=== PATIENT | female | born 1940 | race Caucasian/White ===

== ENCOUNTER → 2017-11-07 16:15 | Outpatient (CLI) | payer BC, SELFPAY ==
[2017-11-07 17:42] LABS: Absolute Lymphocyte Count 1.27 X10^3/ul (0.83-4.51); Basophil# 0.04 X10^3/uL; Basophil% 0.6 % (0-1); Eosinophil# 0.03 X10^3/uL; Eosinophils% 0.4 % (0-5); Hematocrit 43.8 % (37-47); Hemoglobin 14.8 g/dl (12.0-15.0); Lymphocyte # 1.27 X10^3/ul (4.0); Lymphocyte % 18.4 % (19-41); Mean Corp Hgb Conc 33.8 g/gl (32-36); Mean Corpuscular Hgb 31.2 pg (27.0-32.0); Mean Corpuscular Volume 92.2 fL (81-99); Mean Platelet Vol. 11.3 fl (6.2-12.0); Monocyte# 0.58 X10^3/uL; Monocyte% 8.4 % (0-10); Neutrophil # 4.97 X10^3/uL (2.7-7.7); Neutrophil % 71.9 % (47-70); Platelet Count 327 K/mm3 (150-450); RBC Distribution Width SD 39.8 fl (35.1-43.9); Red Blood Count 4.75 M/mm3 (4.2-5.4); White Blood Count 6.9 K/mm3 (4.4-11.0)
[2017-11-07 18:03] LABS: ALB/GLOB Ratio 0.9 RATIO (0.9-2.4); AST(SGOT) 19 U/L (15-37); Alanine Aminotransfer ALT/SGPT 30 U/L (13-56); Albumin, Serum 3.6 g/dL (3.2-5.0); Alkaline Phosphatase 94 U/L (45-117); Anion Gap 9 (5-15); BUN 14 mg/dL (7-18); BUN/Creat Ratio 19.2 RATIO (10-20); Calcium,Total 9.2 mg/dL (8.5-10.1); Chloride 103 mmol/L (98-107); Cholesterol 257 mg/dL (200); Creatinine, Serum 0.73 mg/dL (0.55-1.02); EST Glomerular Filtration Rate 83 mL/min (>60); Est Glom Filt Rate - Afr Amer 100 mL/min (>60); Globulin 3.9 g/dL (2.2-4.2); Glucose 104 mg/dL (74-106); High Density Lipoprotein 58 mg/dL; Potassium 4.1 mmol/L (3.5-5.1); Protein, Total 7.5 g/dL (6.4-8.2); Sodium Level 137 mmol/L (136-145); Thyroid Stim Hormone (TSH) 1.07 uIU/mL (0.358-3.74); Triglycerides 85 mg/dL; Very Low Density Lipoprotein 17 mg/dL (5-40)
[2017-11-07 18:04] LABS: POSITIVE COUNT NO; POSITIVE DIFFERENTIAL NO; POSITIVE MORPHOLOGY NO
== END ==
PROVIDERS: Family Provider Family Medicine; PCP Family Medicine; Visit Provider Family Medicine
DX: I10 Essential (primary) hypertension (principal); E78.5 Hyperlipidemia, unspecified; E04.1 Nontoxic single thyroid nodule
CPT/HCPCS: 36415; 80053; 80061; 84439; 84443; 85025

== ENCOUNTER → 2017-11-08 12:21 | Outpatient (CLI) | payer BC, SELFPAY ==
[2017-11-08 14:31] LABS: Color, Urine Yellow (Yellow); Glucose, Dipstick Normal (Normal); Ketone-Dipstick Negative (Negative); Leukocyte Esterase-Dipstick 500 /ul (Negative); Nitrite-Dipstick Negative (Negative); Occult Blood-Urine 25 /ul (Negative); Protein-Dipstick Negative (Negative); Specific Gravity, Urine 1.015 (1.002-1.030); Urine Bilirubin Dipstick Negative (Negative); Urine Clarity Clear (Clear); Urine Urobilinogen Normal (Normal)
[2017-11-08 14:42] LABS: Bacteria 1+ /hpf (None Seen); Mucous, Urine 1+ /hpf (<or=2+); Red Blood Cells-Urine 0-5 SEEN /hpf (0-5); Squamous Epithelial Cells - UA 0-5 SEEN /hpf (5-10); White Blood Cells 5-10 SEEN /hpf (0-5)
== END ==
PROVIDERS: Family Provider Family Medicine; PCP Family Medicine; Visit Provider Family Medicine
DX: E04.1 Nontoxic single thyroid nodule (principal); E78.5 Hyperlipidemia, unspecified; I10 Essential (primary) hypertension
CPT/HCPCS: 81001

== ENCOUNTER → 2017-11-12 10:05 | Outpatient (CLI) | payer BC, SELFPAY ==
--- NOTE | 2017-11-12 10:10 | US_ITS ---
STUDY: THYROID ULTRASOUND REASON FOR EXAM: Female, 77 years old. Palpable thyroid nodule TECHNIQUE: Ultrasound evaluation of the thyroid was performed with real-time and static chow-scale imaging. COMPARISON: None. FINDINGS: RIGHT LOBE: The right lobe of the thyroid gland measures 4.2 x 1.1 x 1.5 cm. There is a homogeneous echotexture. There are numerous hypoechoic nodules scattered throughout the right thyroid lobe, the largest fibroid measuring 7 x 7 x 3 mm, 8 x 6 x 5 mm, 8 x 7 x 5 mm, 5 x 4 x 5 mm, and 5 x 6 x 4 mm. LEFT LOBE: The left lobe of the thyroid gland measures 4.4 x 1.7 x 2.1 cm. There is a homogeneous echotexture. There is a mixed echogenic slightly hyperechoic nodule of the mid pole measuring 1.9 x 1.9 x 1.1 cm. There is a second mixed echogenic hypoechoic nodule of the lower pole measuring 1.1 x 1.0 x 1.4 cm. ISTHMUS: The isthmus measures 2 mm . The regional lymph nodes are normal. US/Thyroid IMPRESSION: Bilateral thyroid nodules as detailed above. Biopsy of the left thyroid lobe nodules is recommended. Electronically Signed: Cristhian Perez MD at 17:19 EDT , Service support ,
== END ==
PROVIDERS: Family Provider Family Medicine; PCP Family Medicine; Visit Provider Family Medicine
DX: E04.1 Nontoxic single thyroid nodule (principal)
CPT/HCPCS: 76536

== ENCOUNTER → 2017-12-04 07:46 | Outpatient (CLI) | payer BC, SELFPAY ==
--- NOTE | 2017-12-04 14:00 | ASPS_PTH ---
PATIENT: FRANK LI [facility] U[facility][id number] AGE/SX: 84/F ROOM: RE12/04/[address]: Dr. Dilip Pierce MD : 1940 BED: DIS: SPEC #: [id number] RECD: 12/05/17 07:29 STATUS: YG CHRISTIAN #: [id number] ANGELA: 12/04/17 14:[address]: Dilip Pierce DEPT: CYTOLOGY RECD BY: Wild Shipley ENTERED: 12/05/17 08:48 SP TYPE: ASPIRATION OTHR DR: Dr. Fabián Salazar MD Tissues: A - Thyroid gland, NOS B - Thyroid gland, NOS Procedures: Pap Stain (control) Special Stain Group II Cytology Other HEADER OPERATION: Left thyroid FNA x2 PRE-OP DIAGNOSIS: Left thyroid nodule TISSUE SUBMITTED: A - Left thyroid slides inferior (6 slides), B - Left superior thyroid slides (6 slides) DIAGNOSIS CYTOLOGY A. Left thyroid nodule, inferior, FNA (smears): Consistent with benign follicular nodule. The specimen is adequate for evaluation. See comment. B. Left thyroid nodule, superior, FNA (smears): Consistent with benign follicular nodule. The specimen is adequate for evaluation. CLEMENTINA:john 12/06/17 COMMENT A. The smears are cellular. The findings may represent adenomatoid nodule. Correlation with clinical, radiologic findings and appropriate follow up are necessary. CYTOLOGY STUDY Slides are reviewed. CYTOLOGY GROSS A - Received are six smears labeled with the patient's name and designated per the requisition as left inferior thyroid. Submitted for staining. B - Received are six smears labeled with the patient's name and designated per the requisition as left superior thyroid. Submitted for staining. / Shan 12/05/17 TC: CPT: 16441 x2
== END ==
PROVIDERS: Family Provider Family Medicine; PCP Family Medicine; Referring Provider Surgery; Visit Provider Surgery
DX: E04.1 Nontoxic single thyroid nodule (principal)
CPT/HCPCS: 88161; 88313

== ENCOUNTER → 2018-03-06 08:11 | Outpatient (CLI) | payer BC, SELFPAY ==
[2017-11-21 10:24] VITALS: BMI 26.8
[2018-03-06 10:03] LABS: Hematocrit 47.1 % (37-47); Hemoglobin 15.8 g/dl (12.0-15.0); Mean Corp Hgb Conc 33.5 g/gl (32-36); Mean Corpuscular Hgb 30.6 pg (27.0-32.0); Mean Corpuscular Volume 91.1 fL (81-99); Mean Platelet Vol. 11.4 fl (6.2-12.0); Platelet Count 323 K/mm3 (150-450); RBC Distribution Width CV 12.3 % (11.6-14.6); RBC Distribution Width SD 40.6 fl (35.1-43.9); Red Blood Count 5.17 M/mm3 (4.2-5.4); White Blood Count 5.6 K/mm3 (4.4-11.0)
[2018-03-06 10:04] LABS: Absolute Lymphocyte Count 1.29 X10^3/ul (0.83-4.51); Absolute Neutrophil Count 3.6 X10^3/uL (2.0-7.7); Basophil# 0.02 X10^3/uL; Basophil% 0.4 % (0-1); Eosinophil# 0.07 X10^3/uL; Eosinophils% 1.3 % (0-5); Lymphocyte # 1.29 X10^3/ul (4.0); Monocyte# 0.58 X10^3/uL; Monocyte% 10.4 % (0-10); Neutrophil # 3.63 X10^3/uL (2.7-7.7); Neutrophil % 64.7 % (47-70)
[2018-03-06 10:13] LABS: POSITIVE COUNT NO; POSITIVE DIFFERENTIAL NO; POSITIVE MORPHOLOGY NO
[2018-03-06 10:24] LABS: ALB/GLOB Ratio 1.1 RATIO (0.9-2.4); AST(SGOT) 25 U/L (15-37); Alanine Aminotransfer ALT/SGPT 33 U/L (13-56); Albumin, Serum 3.8 g/dL (3.2-5.0); Alkaline Phosphatase 111 U/L (45-117); Anion Gap 10 (5-15); BUN 14 mg/dL (7-18); BUN/Creat Ratio 20.1 RATIO (10-20); Calcium,Total 9.4 mg/dL (8.5-10.1); Chloride 103 mmol/L (98-107); Cholesterol 286 mg/dL (200); EST Glomerular Filtration Rate 87 mL/min (>60); Est Glom Filt Rate - Afr Amer 105 mL/min (>60); Globulin 3.4 g/dL (2.2-4.2); Glucose 100 mg/dL (74-106); High Density Lipoprotein 64 mg/dL; Potassium 4.3 mmol/L (3.5-5.1); Protein, Total 7.2 g/dL (6.4-8.2); Sodium Level 141 mmol/L (136-145); Triglycerides 130 mg/dL; Very Low Density Lipoprotein 26 mg/dL (5-40)
[2018-03-06 15:51] LABS: Bacteria 0 SEEN /hpf (None Seen); Mucous, Urine 0 SEEN /hpf (<or=2+); Red Blood Cells-Urine 0 SEEN /hpf (0-5)
[2018-03-06 16:22] LABS: Color, Urine Straw (Yellow); Glucose, Dipstick Normal (Normal); Ketone-Dipstick Negative (Negative); Leukocyte Esterase-Dipstick 500 /ul (Negative); Nitrite-Dipstick Negative (Negative); Occult Blood-Urine Negative /ul (Negative); Protein-Dipstick Negative (Negative); Urine Bilirubin Dipstick Negative (Negative); Urine Clarity Clear (Clear); Urine Urobilinogen Normal (Normal)
[2018-03-06 16:51] LABS: Squamous Epithelial Cells - UA 0-5 SEEN /hpf (5-10); Transitional Epithelial - Ur 0-5 SEEN /hpf (0-5)
[2018-03-06 16:52] LABS: White Blood Cells 0-5 SEEN /hpf (0-5)
== END ==
PROVIDERS: Family Provider Family Medicine; PCP Family Medicine; Visit Provider Family Medicine
DX: I10 Essential (primary) hypertension (principal); E78.5 Hyperlipidemia, unspecified
CPT/HCPCS: 36415; 80053; 80061; 81001; 85025

== ENCOUNTER → 2018-06-27 08:01 | Outpatient (CLI) | payer BC, SELFPAY ==
[2018-06-27 10:09] LABS: Absolute Lymphocyte Count 1.45 X10^3/ul (0.83-4.51); Absolute Neutrophil Count 2.8 X10^3/uL (2.0-7.7); Basophil# 0.02 X10^3/uL; Basophil% 0.4 % (0-1); Eosinophil# 0.16 X10^3/uL; Eosinophils% 3.2 % (0-5); Hematocrit 44.2 % (37-47); Hemoglobin 15.2 g/dl (12.0-15.0); Lymphocyte # 1.45 X10^3/ul (4.0); Lymphocyte % 28.9 % (19-41); Mean Corp Hgb Conc 34.4 g/gl (32-36); Mean Corpuscular Hgb 31.2 pg (27.0-32.0); Mean Corpuscular Volume 90.8 fL (81-99); Mean Platelet Vol. 11.3 fl (6.2-12.0); Monocyte# 0.63 X10^3/uL; Monocyte% 12.5 % (0-10); Neutrophil # 2.75 X10^3/uL (2.7-7.7); Neutrophil % 54.8 % (47-70); Platelet Count 316 K/mm3 (150-450); RBC Distribution Width CV 12.4 % (11.6-14.6); Red Blood Count 4.87 M/mm3 (4.2-5.4)
[2018-06-27 10:11] LABS: POSITIVE COUNT NO; POSITIVE DIFFERENTIAL NO; POSITIVE MORPHOLOGY NO
[2018-06-27 11:03] LABS: ALB/GLOB Ratio 1.3 RATIO (0.9-2.4); AST(SGOT) 23 U/L (15-37); Alanine Aminotransfer ALT/SGPT 32 U/L (13-56); Albumin, Serum 3.8 g/dL (3.2-5.0); Alkaline Phosphatase 111 U/L (45-117); Anion Gap 8 (5-15); BUN 12 mg/dL (7-18); BUN/Creat Ratio 17.8 RATIO (10-20); Calcium,Total 8.9 mg/dL (8.5-10.1); Chloride 104 mmol/L (98-107); Cholesterol 251 mg/dL (200); Creatinine, Serum 0.67 mg/dL (0.55-1.02); EST Glomerular Filtration Rate 91 mL/min (>60); Est Glom Filt Rate - Afr Amer 110 mL/min (>60); Glucose 87 mg/dL (74-106); High Density Lipoprotein 63 mg/dL; Potassium 4.1 mmol/L (3.5-5.1); Protein, Total 6.8 g/dL (6.4-8.2); Sodium Level 140 mmol/L (136-145); Triglycerides 92 mg/dL; Very Low Density Lipoprotein 18 mg/dL (5-40)
[2018-07-02 23:07] LABS: CPK Total, Creatine Kinase 74 U/L (26-192); Ferritin 71 ng/mL (8-252); Magnesium 2.3 mg/dL (1.6-2.6)
== END ==
PROVIDERS: Family Provider Family Medicine; PCP Family Medicine; Referring Provider Family Medicine; Visit Provider Family Medicine
DX: E78.5 Hyperlipidemia, unspecified (principal); I10 Essential (primary) hypertension
CPT/HCPCS: 36415; 80053; 80061; 82550; 82728; 83735; 85025

== ENCOUNTER → 2018-11-04 09:29 | Outpatient (CLI) | payer BC, SELFPAY ==
[2017-11-21 10:24] VITALS: BMI 26.8
[2018-11-04 12:50] LABS: CPK Total, Creatine Kinase 93 U/L (26-192); Ferritin 86 ng/mL (8-252); Magnesium 2.4 mg/dL (1.6-2.6)
== END ==
PROVIDERS: Family Provider Family Medicine; PCP Family Medicine; Referring Provider Family Medicine; Visit Provider Family Medicine
DX: R25.2 Cramp and spasm (principal)
CPT/HCPCS: 36415; 82550; 82728; 83735

== ENCOUNTER → 2018-12-26 11:16 | Outpatient (CLI) | payer BC, SELFPAY ==
--- NOTE | 2018-12-26 11:23 | US_ITS ---
STUDY: THYROID ULTRASOUND REASON FOR EXAM: Female, 78 years old. Multiple thyroid nodule. TECHNIQUE: Ultrasound evaluation of the thyroid was performed with real-time and static chow-scale imaging. COMPARISON: 11/12/2017. FINDINGS: RIGHT LOBE: The right lobe of the thyroid gland measures 4.4 x 1.2 x 1.6 cm. There is a heterogeneous echotexture. Within the right thyroid lobe there are multiple hypoechoic, solid nodules with the hypoechoic rim and and internal vascularity, largest measuring 0.8 x 0.7 x 0.4 cm and 0.7 x 0.5 x 0.6 cm. There are few partially cystic/solid nodules largest measuring 0.7 x 0.4 cm. The margins are regular. LEFT LOBE: The left lobe of the thyroid gland measures 4.6 x 2.1 x 2.0 cm. There is a heterogeneous echotexture. Within the left thyroid lobe there are 2 nodules, largest measuring 2.5 x 1.9 x 1.6 cm with partial hypoechoic rim, internal flow and partial cystic changes. A second nodule seen measuring 1.4 x 1.0 x 1.5 cm with partial cystic change and solid pattern. There is mild calcification at this level. ISTHMUS: The isthmus measures 2.0 mm. The regional lymph nodes are normal. US/Thyroid IMPRESSION: Bilateral thyroid lobe nodules as described above with morphology favoring benign process and stable in the interval. No new nodules are identified. Clinical correlation recommended. Electronically Signed: Inez Campbell MD at 3:09 EDT , Service support ,
== END ==
PROVIDERS: Family Provider Family Medicine; PCP Family Medicine; Referring Provider Family Medicine; Visit Provider Family Medicine
DX: E04.2 Nontoxic multinodular goiter (principal)
CPT/HCPCS: 76536

== ENCOUNTER → 2020-01-07 14:08 | Outpatient (CLI) | payer BC, SELFPAY ==
--- NOTE | 2020-01-07 14:11 | US_ITS ---
STUDY: THYROID ULTRASOUND REASON FOR EXAM: Female, 79 years old. F/U NODULES TECHNIQUE: Ultrasound evaluation of the thyroid was performed with real-time and static chow-scale imaging. COMPARISON: 12/26/2018 FINDINGS: RIGHT LOBE: The right lobe of the thyroid gland measures 4.5 x 1.2 x 1.5 cm. There is a heterogeneous echotexture. There are multiple solid (and some cystic) nodules of the right thyroid lobe with the largest measuring up to 9 mm. None of the nodules have demonstrated significant morphologic change since the prior study. LEFT LOBE: The left lobe of the thyroid gland measures 4.6 x 2.0 x 1.8 cm. There is a heterogeneous echotexture. There are multiple nodules of the thyroid lobe with the largest solid nodule measuring up to 2.4 cm, not substantially changed. An additional solid nodule measuring 1.4 cm is also overall similar to slightly smaller as compared to the prior study. None of the nodules have demonstrated significant morphologic change since the prior study. ISTHMUS: The isthmus measures 2 mm. The regional lymph nodes are normal. US/Thyroid IMPRESSION: 1. Stable multinodular thyroid gland. No significant interval change. No new nodules. Electronically Signed: Francis Nichole MD (Brooks) at 9:14 EST , Service support ,
== END ==
PROVIDERS: PCP Family Medicine; Referring Provider Family Medicine; Visit Provider Family Medicine
DX: E04.2 Nontoxic multinodular goiter (principal)
CPT/HCPCS: 76536

== ENCOUNTER 2020-05-05 10:16 | Outpatient (RCR) | payer BC, SELFPAY ==
[2017-11-21 10:24] VITALS: BMI 26.8
[2020-05-05] MEDS: COVID-19 VACC, MRNA(PFIZER)/PF 30 MCG/0.3 ML SYRINGE IM (09:04)
[2020-05-26] MEDS: COVID-19 VACC, MRNA(PFIZER)/PF 30 MCG/0.3 ML SYRINGE IM (08:54)
== END 2020-05-05 23:59 ==
LOC: IMMUN 10:16
PROVIDERS: PCP Family Medicine; Visit Provider Family Medicine
DX: Z23 Encounter for immunization (principal)
CPT/HCPCS: 0001A; 0002A

== ENCOUNTER → 2020-06-14 08:01 | Outpatient (CLI) | payer BC, SELFPAY ==
[2020-06-14 10:06] LABS: Absolute Lymphocyte Count 1.18 X10^3/uL (0.83-4.51); Basophil# 0.03 X10^3/uL; Basophil% 0.6 % (0-1); Eosinophil# 0.07 X10^3/uL; Eosinophils% 1.4 % (0-5); Lymphocyte # 1.18 X10^3/ul (4.0); Lymphocyte % 24.3 % (19-41); Mean Corp Hgb Conc 31.9 g/dL (32-36); Mean Corpuscular Hgb 29.9 pg (27.0-32.0); Mean Corpuscular Volume 93.8 fL (81-99); Mean Platelet Vol. 11.8 fl (6.2-12.0); Monocyte# 0.52 X10^3/uL; Monocyte% 10.7 % (0-10); NRBC Flagged by Analyzer 0 % (0-5); Neutrophil # 3.02 X10^3/uL (2.7-7.7); Neutrophil % 62.4 % (47-70); Platelet Count 327 K/mm3 (150-450); RBC Distribution Width CV 11.9 % (11.6-14.6); Red Blood Count 5.01 M/mm3 (4.2-5.4); White Blood Count 4.9 K/mm3 (4.4-11.0)
[2020-06-14 10:27] LABS: AST(SGOT) 25 U/L (15-37); Alanine Aminotransfer ALT/SGPT 34 U/L (13-56); Albumin, Serum 3.6 g/dL (3.2-5.0); Alkaline Phosphatase 109 U/L (45-117); Anion Gap 5 (5-15); BUN 14 mg/dL (7-18); BUN/Creat Ratio 20.8 RATIO (10-20); Calcium,Total 9.4 mg/dL (8.5-10.1); Chloride 102 mmol/L (98-107); Cholesterol 237 mg/dL (200); Creatinine, Serum 0.67 mg/dL (0.55-1.02); EST Glomerular Filtration Rate 90 mL/min (>60); Est Glom Filt Rate - Afr Amer 109 mL/min (>60); Globulin 3.6 g/dL (2.2-4.2); Glucose 103 mg/dL (74-106); High Density Lipoprotein 64 mg/dL; Potassium 3.9 mmol/L (3.5-5.1); Protein, Total 7.2 g/dL (6.4-8.2); Sodium Level 138 mmol/L (136-145); Triglycerides 126 mg/dL; Very Low Density Lipoprotein 25 mg/dL (5-40)
[2020-06-14 10:31] LABS: Vitamin D,25 Hydroxy 29.9 ng/mL
[2020-06-15 10:30] LABS: Hemoglobin A1c 5.1 % (3.8-5.6)
== END ==
PROVIDERS: PCP Family Medicine; Referring Provider Family Medicine; Visit Provider Family Medicine
DX: I10 Essential (primary) hypertension (principal); E55.9 Vitamin D deficiency, unspecified; E78.5 Hyperlipidemia, unspecified; R73.9 Hyperglycemia, unspecified
CPT/HCPCS: 36415; 80053; 80061; 82306; 83036; 85025

== ENCOUNTER → 2021-01-11 08:09 | Outpatient (CLI) | payer BC, SELFPAY ==
[2021-01-11 10:20] LABS: Absolute Lymphocyte Count 1.18 X10^3/uL (0.83-4.51); Absolute Neutrophil Count 4.6 X10^3/uL (2.0-7.7); Basophil# 0.04 X10^3/uL; Basophil% 0.6 % (0-1); Eosinophils% 1.5 % (0-5); Hematocrit 44.7 % (37-47); Hemoglobin 15.1 g/dL (12.0-15.0); Lymphocyte # 1.18 X10^3/ul (0.83-4.51); Lymphocyte % 18.2 % (19-41); Mean Corp Hgb Conc 33.8 g/dL (32-36); Mean Corpuscular Hgb 31.1 pg (27.0-32.0); Mean Corpuscular Volume 92.2 fL (81-99); Mean Platelet Vol. 11.8 fl (6.2-12.0); Monocyte% 9.2 % (0-10); NRBC Flagged by Analyzer 0 % (0-5); Neutrophil # 4.55 X10^3/uL (2.7-7.7); Neutrophil % 70.2 % (47-70); Platelet Count 301 K/mm3 (150-450); RBC Distribution Width CV 11.9 % (11.6-14.6); RBC Distribution Width SD 40.5 fl (35.1-43.9); Red Blood Count 4.85 M/mm3 (4.2-5.4); White Blood Count 6.5 K/mm3 (4.4-11.0)
[2021-01-11 11:06] LABS: Vitamin D,25 Hydroxy 40.2 ng/mL
[2021-01-11 11:14] LABS: Hemoglobin A1c 5.3 % (3.8-5.6)
[2021-01-11 11:45] LABS: ALB/GLOB Ratio 0.9 RATIO (0.9-2.4); AST(SGOT) 27 U/L (15-37); Alanine Aminotransfer ALT/SGPT 32 U/L (13-56); Albumin, Serum 3.4 g/dL (3.2-5.0); Alkaline Phosphatase 74 U/L (45-117); Anion Gap 8 (5-15); BUN 15 mg/dL (7-18); BUN/Creat Ratio 20.3 RATIO (10-20); Chloride 105 mmol/L (98-107); Cholesterol 220 mg/dL (200); Creatinine, Serum 0.74 mg/dL (0.55-1.02); EST Glomerular Filtration Rate 81 mL/min (>60); Est Glom Filt Rate - Afr Amer 98 mL/min (>60); Globulin 3.7 g/dL (2.2-4.2); Glucose 94 mg/dL (74-106); High Density Lipoprotein 56 mg/dL; Potassium 3.7 mmol/L (3.5-5.1); Protein, Total 7.1 g/dL (6.4-8.2); Sodium Level 138 mmol/L (136-145); Thyroid Stim Hormone (TSH) 1.76 uIU/mL (0.358-3.74); Triglycerides 144 mg/dL; Very Low Density Lipoprotein 29 mg/dL (5-40)
== END ==
PROVIDERS: PCP Family Medicine; Referring Provider Family Medicine; Visit Provider Family Medicine
DX: I10 Essential (primary) hypertension (principal); E78.5 Hyperlipidemia, unspecified; R73.9 Hyperglycemia, unspecified; E55.9 Vitamin D deficiency, unspecified
CPT/HCPCS: 36415; 80053; 80061; 82306; 83036; 84443; 85025

== ENCOUNTER → 2021-08-02 | Outpatient (CLI) | payer BC, SELFPAY ==
[2021-08-02 10:03] LABS: Absolute Lymphocyte Count 1.38 X10^3/uL (0.83-4.51); Absolute Neutrophil Count 3.9 X10^3/uL (2.0-7.7); Basophil# 0.05 X10^3/uL; Basophil% 0.8 % (0-1); Eosinophil# 0.13 X10^3/uL; Eosinophils% 2.1 % (0-5); Hematocrit 45.5 % (37-47); Hemoglobin 15.3 g/dL (12.0-15.0); Lymphocyte # 1.38 X10^3/ul (0.83-4.51); Lymphocyte % 22.1 % (19-41); Mean Corp Hgb Conc 33.6 g/dL (32-36); Mean Corpuscular Hgb 30.8 pg (27.0-32.0); Mean Corpuscular Volume 91.7 fL (81-99); Mean Platelet Vol. 11.8 fl (6.2-12.0); Monocyte# 0.73 X10^3/uL; Monocyte% 11.7 % (0-10); NRBC Flagged by Analyzer 0 % (0-5); Neutrophil # 3.93 X10^3/uL (2.7-7.7); Neutrophil % 62.8 % (47-70); Platelet Count 298 K/mm3 (150-450); RBC Distribution Width CV 11.9 % (11.6-14.6); RBC Distribution Width SD 39.8 fl (35.1-43.9); Red Blood Count 4.96 M/mm3 (4.2-5.4); White Blood Count 6.3 K/mm3 (4.4-11.0)
[2021-08-02 10:20] LABS: Vitamin D,25 Hydroxy 39.4 ng/mL
[2021-08-02 10:38] LABS: AST(SGOT) 28 U/L (15-37); Alanine Aminotransfer ALT/SGPT 32 U/L (13-56); Albumin, Serum 3.5 g/dL (3.2-5.0); Alkaline Phosphatase 58 U/L (45-117); Anion Gap 7 (5-15); BUN 17 mg/dL (7-18); BUN/Creat Ratio 24.6 RATIO (10-20); Calcium,Total 9.1 mg/dL (8.5-10.1); Chloride 100 mmol/L (98-107); Cholesterol 249 mg/dL (200); Creatinine, Serum 0.69 mg/dL (0.55-1.02); EST Glomerular Filtration Rate 87 mL/min (>60); Est Glom Filt Rate - Afr Amer 105 mL/min (>60); Globulin 3.5 g/dL (2.2-4.2); Glucose 98 mg/dL (74-106); High Density Lipoprotein 46 mg/dL; Potassium 3.3 mmol/L (3.5-5.1); Sodium Level 137 mmol/L (136-145); Triglycerides 104 mg/dL; Very Low Density Lipoprotein 21 mg/dL (5-40)
== END | disposition home or self-care (01) ==
PROVIDERS: PCP Family Medicine; Visit Provider Family Medicine
DX: I10 Essential (primary) hypertension (principal); E55.9 Vitamin D deficiency, unspecified
CPT/HCPCS: 36415; 80053; 80061; 82306; 85025

== ENCOUNTER → 2021-08-08 | Outpatient (CLI) | payer BC, SELFPAY ==
--- NOTE | 2021-08-08 14:18 | US_ITS ---
STUDY: THYROID ULTRASOUND REASON FOR EXAM: Female, 81 years old. MULTIPLE THYROID NODULES TECHNIQUE: Ultrasound evaluation of the thyroid was performed with real-time and static chow-scale imaging. COMPARISON: Comparison is made with prior study dated 01/07/2020. FINDINGS: RIGHT LOBE: The right lobe of the thyroid gland measures 4.6 cm x 1.4 cm x 1.3 cm. There is a heterogeneous echotexture. Multiple solid and cystic nodules are seen. The largest measures 9 mm x 7 mm x 4 mm. This is in the midpole. There has been no significant change. LEFT LOBE: The left lobe of the thyroid gland measures 4.7 cm x 2.2 cm x 2 cm. There is a homogeneous echotexture. Multiple small solid and cystic nodules are seen. The largest solid/cystic nodule measures 1.2 cm x 0.9 cm x 0.9 cm. This is in the upper pole. This has decreased slightly in size as compared to prior study. ISTHMUS: The isthmus measures 2.5 mm. The regional lymph nodes are normal. US/Thyroid IMPRESSION: Bilateral solid and cystic nodules in both lobes as described. The largest is in the left lobe measuring 1.2 cm x 0.9 cm x 0.9 cm. This has decreased in size as compared to prior study. Electronically Signed: Peewee Rendon MD at 15:56 EDT ,
== END | disposition home or self-care (01) ==
LOC: US 14:15
PROVIDERS: PCP Family Medicine; Referring Provider Family Medicine; Visit Provider Family Medicine
DX: E04.2 Nontoxic multinodular goiter (principal)
CPT/HCPCS: 76536

== ENCOUNTER → 2022-05-08 | Outpatient (CLI) | payer BC, SELFPAY ==
--- NOTE | 2022-05-08 16:00 | BD_ITS ---
STUDY: DUAL ENERGY X-RAY ABSORPTIOMETRY / DXA REASON FOR EXAM: Female, 81 years old. [id number] TECHNIQUE: Bone Mineral Density (BMD) measurements of lumbar spine and bilateral hips were obtained. COMPARISON: None. FINDINGS: Lumbar Spine (L1-L4): g/cm2 (1.243) / T-score (1.5) / Z-score (4.3) Findings are suggestive of normal bone density with a low fracture risk. Left Femur Total: g/cm2 (0.830) / T-score (-0.9) / Z-score (1.1) Left Femoral Neck: g/cm2 (0.595) / T-score (-2.3) / Z-score (0.0) Right Femur Total: g/cm2 (0.757) / T-score (-1.5) / Z-score (0.5) Right Femoral Neck: g/cm2 (0.651) / T-score (-1.8) / Z-score (0.5) BD/Dexa Bone Density Study IMPRESSION: The patient is considered osteopenic as outlined below according to World Foster Organization (WHO) criteria with a high fracture risk. Reference Information: The T-score is the number of standard deviations above or below the standard which is normal for young adults at their peak bone mineral density. The World Health Organization (WHO) interprets the T-scores as follows: Above -1 Normal bone density Between -1 and -2.5 Osteopenia Equal to / or below -2.5 Osteoporosis As a practical clinical guideline, osteopenia may be graded as follows: Mild -1 through -1.5 Moderate -1.6 through -2.0 Severe -2.1 through -2.4 The Z-score is the number of standard deviations above or below age-matched controls. A Z-score of less than -1.5 would be considered abnormal. References: 1. NIH Osteoporosis and Related Bone Diseases www osteo.org 2. International Society for Clinical Densitometry www iscd.org 3. National Osteoporosis Foundation www nof.org Electronically Signed: Peewee Rendon MD at 17:01 EST ,
== END | disposition home or self-care (01) ==
PROVIDERS: PCP Family Medicine; Referring Provider Family Medicine; Visit Provider Family Medicine
DX: Z78.0 Asymptomatic menopausal state (principal)
CPT/HCPCS: 77080

== ENCOUNTER → 2022-05-31 | Outpatient (CLI) | payer BC, SELFPAY ==
[2022-05-31 18:48] LABS: AST(SGOT) 26 U/L (15-37); Alanine Aminotransfer ALT/SGPT 31 U/L (13-56); Albumin, Serum 3.7 g/dL (3.2-5.0); Alkaline Phosphatase 70 U/L (45-117); Anion Gap 8 (5-15); BUN 27 mg/dL (7-18); BUN/Creat Ratio 36.2 RATIO (10-20); Calcium,Total 9.5 mg/dL (8.5-10.1); Chloride 99 mmol/L (98-107); Creatinine, Serum 0.75 mg/dL (0.55-1.02); EST Glomerular Filtration Rate 80 mL/min (>60); Est Glom Filt Rate - Afr Amer 96 mL/min (>60); Globulin 3.6 g/dL (2.2-4.2); Glucose 100 mg/dL (74-106); Protein, Total 7.3 g/dL (6.4-8.2); Sodium Level 136 mmol/L (136-145)
== END | disposition home or self-care (01) ==
LOC: MTLAB 14:53
PROVIDERS: PCP Family Medicine; Referring Provider Family Medicine; Visit Provider Family Medicine
DX: M85.80 Other specified disorders of bone density and structure, unspecified site (principal)
CPT/HCPCS: 36415; 80053

== ENCOUNTER → 2022-06-06 | Outpatient (CLI) | payer BC, SELFPAY ==
[2022-06-06 18:04] LABS: Potassium 4.4 mmol/L (3.5-5.1)
== END | disposition home or self-care (01) ==
LOC: MFPLAB 14:25
PROVIDERS: PCP Family Medicine; Referring Provider Family Medicine; Visit Provider Family Medicine
DX: E87.6 Hypokalemia (principal)
CPT/HCPCS: 36415; 84132

== ENCOUNTER → 2022-06-12 | Outpatient (CLI) | payer BC, SELFPAY ==
[2022-06-12 18:36] LABS: Potassium 3.3 mmol/L (3.5-5.1)
== END | disposition home or self-care (01) ==
LOC: MFPLAB 14:46
PROVIDERS: PCP Family Medicine; Referring Provider Family Medicine; Visit Provider Family Medicine
DX: E87.6 Hypokalemia (principal)
CPT/HCPCS: 36415; 84132

== ENCOUNTER → 2022-06-20 | Outpatient (CLI) | payer BC, SELFPAY ==
[2022-06-20 16:14] LABS: Potassium 3.9 mmol/L (3.5-5.1)
== END | disposition home or self-care (01) ==
LOC: MFPLAB 14:31
PROVIDERS: PCP Family Medicine; Referring Provider Family Medicine; Visit Provider Family Medicine
DX: E87.6 Hypokalemia (principal)
CPT/HCPCS: 36415; 84132

== ENCOUNTER 2022-08-18 04:11 | Emergency (ER) | payer BC, SELFPAY ==
[2022-08-18 04:12] VITALS: BP 163/60; PULSE 78; RESP 18; TEMP 35.9; O2SAT 97; BMI 26.4
--- NOTE | 2022-08-18 04:35 | EDS_ITS ---
HPI HPI - GI History of Present Illness Chief Complaint: Nausea/Vomiting Narrative Narrative: 82-year-old female presenting with nausea, vomiting. She states that started about 7 PM yesterday. She is been vomiting once an hour. Denies bloody emesis or black emesis. No fevers, chills, body aches. Patient states that she ate some fish at a restaurant earlier with her daughter. She has been trying to get a hold of her daughter to see if she has been sick but she not been able to get a hold of her. Patient also concerned that her potassium might be low because she is always got low potassium. She states that she is on hydrochlorothiazide and this makes her potassium low. She states that her primary care physician told her to eat 2 bananas and eat a smoothie every day, however her potassium is always low. She does not have any chest pain or shortness of breath. She does not have any abdominal pain. Denies urinary symptoms. She has not had any diarrhea. PFSH [facility] Medical History Essential hypertension Multiple thyroid nodules Home Medications amlodipine 5 mg tablet (Norvasc) 10 mg PO DAILY 11/21/17 [History Last Taken Unknown] hydrochlorothiazide 25 mg tablet 25 mg PO DAILY 08/18/22 [History Last Taken Unknown] ondansetron 4 mg disintegrating tablet 4 mg PO Q8H PRN PRN Nausea #14 tabs 08/18/22 [Rx Last Taken Unknown] Allergy/AdvReac Type Severity Reaction Status Date / Time atorvastatin [From Lipitor] Allergy Other Verified 08/18/22 04:16 Family History Mother Heart disease CHF Hypertension Father Heart disease Hypertension Myocardial infarction Daughter Breast cancer Lyme disease Surgical History Hx of bilateral cataract extraction Hx of cholecystectomy Hx of wisdom tooth extraction Status post biopsy of thyroid gland (~12/2017) Social History Smoking Status: Never smoker second hand exposure: No alcohol intake: never substance use type: does not use caffeine: Yes what type of physical activity do you participate in: none frequency: does not exercise seatbelt use: always ROS ROS ED Constitutional Constitutional ED: Denies chills, fever(s) or sweats Eyes Eyes: Denies blurry vision or change in vision ENT ENT ED: Denies ear pain or sore throat Cardiovascular Cardiovascular: Denies chest pain, palpitations or racing heartbeat Respiratory/Chest Respiratory/Chest: Denies cough, dyspnea or sputum Gastrointestinal Gastrointestinal: Reports nausea and vomiting; Denies abdominal pain, constipation or diarrhea Genitourinary Genitourinary ED: Denies dysuria, hematuria or urinary frequency Musculoskeletal Musculoskeletal: Denies arthralgias, myalgias or neck pain Integumentary Denies abscess, Abrasions or rash Neurologic Neurologic: Denies headache(s), paresthesias or weakness Psychiatric Psychiatric: Denies anxiety, depression, suicidal ideation or suicidal thoughts Endocrine Endocrinology: Denies polydipsia or polyuria EXAM Physical Exam Const Vital Signs: 08/18/22 04:12 Temperature 96.6 F L Temperature Source Temporal Pulse Rate 78 Respiratory Rate 18 Blood Pressure 163/60 H Blood Pressure Mean 94 Pulse Ox 97 Oxygen Delivery Method Room Air Positive well nourished General Appearance ED: NAD; Negative for pallor HEENT Reports moist mucous membranes normocephalic and atraumatic Eyes PERRL and EOMs intact bilaterally Resp normal respiratory effort and clear to auscultation bilaterally Auscultation: Negative for rales, rhonchi or wheezes Cardio regular rate and regular rhythm GI non-tender and non-distended Neuro CN's II-XII intact bilaterally, moves all extremities and no sensory deficits noted Sensorium / Orientation: alert Motor Exam: strength 5/5 throughout Psych mental status grossly normal and thought process normal Skin no wounds General Skin Exam: Negative for jaundice or pallor MDM MDM MDM Narrative Medical decision making narrative: Patient presenting with nausea/vomiting. She thinks she ate some bad fish at a restaurant yesterday. Vital signs are stable and she is afebrile. Abdominal exam is benign. IV line was established. She is given a liter normal saline and 4 mg of Zofran. We will obtain a CBC to assess white blood cell count, hemoglobin and platelets, differential. CMP to assess liver function, renal function, electrolytes. Urinalysis to assess for UTI. CBC shows a mildly cytosis of 12.4. This could be reactive. Patient has been vomiting. Renal function is normal however her BUN/creatinine ratio is elevated. Given second liter fluid patient has not been able to make urine. She is currently trying again now. She presented to incoming ED provider for monitoring. Impression: 1. Nausea/vomiting Lab Data Labs: Laboratory Results - last 24 hr 08/18/22 08/18/22 04:48 04:48 WBC 12.4 H RBC 5.02 Hgb 15.5 H Hct 45.8 MCV 91.2 MCH 30.9 MCHC 33.8 RDW Std Deviation 39.9 RDW Coeff of Sameer 12.0 Plt Count 273 MPV 10.8 Immature Gran % (Auto) 0.300 Neut % (Auto) 89.9 H Lymph % (Auto) 1.5 L [place] % (Auto) 7.3 Eos % (Auto) 0.5 Baso % (Auto) 0.5 Absolute Neuts (auto) 11.2 H Absolute Lymphs (auto) 0.18 L Nucleated RBC % 0 Differential Comment SCANNED Toxic Granulation 2+ Platelet Estimate ADEQUATE Plt Morphology Comment LARGE Sodium 141 Potassium 3.3 L Chloride 106 Carbon Dioxide 27.0 Anion Gap 8 BUN 23 H Creatinine 0.75 Estim Creat Clear Calc 33.86 Est GFR (MDRD) Af Amer 96 Est GFR (MDRD) Non-Af 79 BUN/Creatinine Ratio 30.7 H Glucose 174 H Calcium 8.6 Total Bilirubin 0.70 AST 22 ALT 33 Alkaline Phosphatase 61 Total Protein 6.7 Albumin 3.4 Globulin 3.3 Albumin/Globulin Ratio 1.0 Discharge Plan Triage Chief Complaint: Nausea/Vomiting ED Provider: Mahad Glez Dx/Rx/DC Orders Instructions: ED FOOD POIS or G-ENTERITIS [id number] Prescriptions: New ondansetron 4 mg tablet,disintegrating 4 mg PO Q8H PRN PRN (Reason: Nausea) Qty: 14 0RF No Action amlodipine [Norvasc] 5 mg tablet 10 mg PO DAILY hydrochlorothiazide 25 mg tablet 25 mg PO DAILY Label Comments: take 1 tablet by mouth once daily Primary Care Provider: Fabián Salazar Referrals: Fabián Salazar MD [Primary Care Provider] - Disposition Disposition: Home, Self Care
[2022-08-18] MEDS: 0.9% Normal Saline 1,000 ML 999 ML IV ×2 (04:45→06:25)
[2022-08-18] MEDS: Ondansetron 4 MG/2 ML Vial IV (04:45)
[2022-08-18 04:52] LABS: Absolute Lymphocyte Count 0.18 X10^3/uL (0.83-4.51); Absolute Neutrophil Count 11.2 X10^3/uL (2.0-7.7); Basophil# 0.06 X10^3/uL; Basophil% 0.5 % (0-1); Eosinophil# 0.06 X10^3/uL; Eosinophils% 0.5 % (0-5); Hematocrit 45.8 % (37-47); Hemoglobin 15.5 g/dL (12.0-15.0); Lymphocyte # 0.18 X10^3/ul (0.83-4.51); Lymphocyte % 1.5 % (19-41); Mean Corp Hgb Conc 33.8 g/dL (32-36); Mean Corpuscular Hgb 30.9 pg (27.0-32.0); Mean Corpuscular Volume 91.2 fL (81-99); Mean Platelet Vol. 10.8 fl (6.2-12.0); Monocyte% 7.3 % (0-10); NRBC Flagged by Analyzer 0 % (0-5); Neutrophil # 11.17 X10^3/uL (2.7-7.7); Neutrophil % 89.9 % (47-70); POSITIVE DIFFERENTIAL YES; Platelet Count 273 K/mm3 (150-450); RBC Distribution Width SD 39.9 fl (35.1-43.9); Red Blood Count 5.02 M/mm3 (4.2-5.4); White Blood Count 12.4 K/mm3 (4.4-11.0)
[2022-08-18 05:07] LABS: AST(SGOT) 22 U/L (15-37); Alanine Aminotransfer ALT/SGPT 33 U/L (13-56); Albumin, Serum 3.4 g/dL (3.2-5.0); Alkaline Phosphatase 61 U/L (45-117); Anion Gap 8 (5-15); BUN 23 mg/dL (7-18); BUN/Creat Ratio 30.7 RATIO (10-20); Calcium,Total 8.6 mg/dL (8.5-10.1); Chloride 106 mmol/L (98-107); Creatinine, Serum 0.75 mg/dL (0.55-1.02); EST Glomerular Filtration Rate 79 mL/min (>60); Est Glom Filt Rate - Afr Amer 96 mL/min (>60); Estimated Creatinine Clearance 33.86 ml/min; Globulin 3.3 g/dL (2.2-4.2); Glucose 174 mg/dL (74-106); Potassium 3.3 mmol/L (3.5-5.1); Protein, Total 6.7 g/dL (6.4-8.2); Sodium Level 141 mmol/L (136-145)
[2022-08-18 05:21] LABS: Differential Indicated SCAN CRITERIA MET
[2022-08-18 05:22] LABS: Differential Comment SCANNED; Platelet Estimate ADEQUATE (ADEQ); Platelet Morphology LARGE; Toxic Granulation 2+
[2022-08-18] MEDS: Potassium Chloride Oral Tablet 20 MEQ 40 MEQ PO (06:14)
[2022-08-18 07:42] LABS: Mucous, Urine 0 SEEN /hpf (<or=2+); Red Blood Cells-Urine 0 SEEN /hpf (0-5); Squamous Epithelial Cells - UA 0 SEEN /hpf (5-10)
[2022-08-18 07:45] LABS: Color, Urine Yellow (Yellow); Glucose, Dipstick Normal (Normal); Ketone-Dipstick Negative (Negative); Leukocyte Esterase-Dipstick 100 /ul (Negative); Nitrite-Dipstick Negative (Negative); Occult Blood-Urine Negative /ul (Negative); Protein-Dipstick 15 mg/dl (Negative); Urine Bilirubin Dipstick Negative (Negative); Urine Clarity Sl. Cloudy (Clear); Urine Urobilinogen Normal (Normal)
[2022-08-18 08:02] LABS: Bacteria 2+ /hpf (None Seen); White Blood Cells 0-5 SEEN /hpf (0-5)
== END 2022-08-18 08:05 | disposition home or self-care (01) ==
PROVIDERS: Emergency Provider Student in an Organized Health Care Education/Training Program; PCP Family Medicine; Visit Provider Student in an Organized Health Care Education/Training Program
DX: R11.2 Nausea with vomiting, unspecified (principal); I10 Essential (primary) hypertension; Z79.899 Other long term (current) drug therapy
CPT/HCPCS: 80053; 81001; 85025; 96374; 99283; J7030; A4216; J2405

== ENCOUNTER → 2022-10-23 | Outpatient (CLI) | payer BC, SELFPAY ==
[2022-10-23 18:31] LABS: Absolute Lymphocyte Count 1.55 X10^3/uL (0.83-4.51); Absolute Neutrophil Count 4.4 X10^3/uL (2.0-7.7); Basophil# 0.04 X10^3/uL; Basophil% 0.6 % (0-1); Eosinophils% 1.5 % (0-5); Hematocrit 44.9 % (37-47); Hemoglobin 14.8 g/dL (12.0-15.0); Lymphocyte # 1.55 X10^3/ul (0.83-4.51); Lymphocyte % 22.5 % (19-41); Mean Corpuscular Hgb 30.6 pg (27.0-32.0); Mean Corpuscular Volume 92.8 fL (81-99); Monocyte# 0.77 X10^3/uL; Monocyte% 11.2 % (0-10); NRBC Flagged by Analyzer 0 % (0-5); Neutrophil % 63.9 % (47-70); Platelet Count 327 K/mm3 (150-450); RBC Distribution Width CV 12.2 % (11.6-14.6); RBC Distribution Width SD 41.7 fl (35.1-43.9); Red Blood Count 4.84 M/mm3 (4.2-5.4); White Blood Count 6.9 K/mm3 (4.4-11.0)
[2022-10-23 19:14] LABS: ALB/GLOB Ratio 1.1 RATIO (0.9-2.4); AST(SGOT) 29 U/L (15-37); Alanine Aminotransfer ALT/SGPT 36 U/L (13-56); Albumin, Serum 3.8 g/dL (3.2-5.0); Alkaline Phosphatase 71 U/L (45-117); Anion Gap 7 (5-15); BUN 20 mg/dL (7-18); BUN/Creat Ratio 24.2 RATIO (10-20); Calcium,Total 9.5 mg/dL (8.5-10.1); Chloride 100 mmol/L (98-107); Cholesterol 226 mg/dL (200); Creatinine, Serum 0.83 mg/dL (0.55-1.02); EST Glomerular Filtration Rate 70 mL/min (>60); Est Glom Filt Rate - Afr Amer 85 mL/min (>60); Globulin 3.6 g/dL (2.2-4.2); Glucose 93 mg/dL (74-106); High Density Lipoprotein 49 mg/dL; Potassium 3.8 mmol/L (3.5-5.1); Protein, Total 7.4 g/dL (6.4-8.2); Sodium Level 137 mmol/L (136-145); Thyroid Stim Hormone (TSH) 1.43 uIU/mL (0.358-3.74); Triglycerides 148 mg/dL; Very Low Density Lipoprotein 30 mg/dL (5-40)
== END | disposition home or self-care (01) ==
LOC: MFPLAB 16:41
PROVIDERS: PCP Family Medicine; Visit Provider Family Medicine
DX: I10 Essential (primary) hypertension (principal); E55.9 Vitamin D deficiency, unspecified
CPT/HCPCS: 36415; 80053; 80061; 82306; 84443; 85025

== ENCOUNTER 2023-09-21 23:45 | Emergency (ER) | payer BC, SELFPAY ==
[2023-09-21 23:46] VITALS: BP 151/66; PULSE 95; RESP 20; TEMP 35.8; O2SAT 97; BMI 24.8
--- NOTE | 2023-09-22 00:13 | ED.VIS.GI ---
HPI HPI - GI History of Present Illness Chief Complaint: Nausea/Vomiting Informant: patient Abdominal Pain/Flank Pain Onset: Today Context: Gradual Onset Timing: Continuous Quality: Cramping Location: Diffuse Worsened by: Nothing Relieved by: Nothing Nausea/Vomiting/Emesis GI Symptom: Positive for Nausea and Vomiting Onset: Today Quality: Positive for Nonbilious; Negative for Blood streaks, Coffee ground or Hematemesis Diarrhea/Melena/Hematochezia GI Symptom: Positive for Diarrhea; Negative for Melena or Hematochezia Onset: Today Stool Quality: Positive for Watery Associated Symptoms Associated Symptoms: Negative for Dysuria, Frequency or Hematuria Narrative Narrative: Patient presents with abdominal pain, nausea, vomiting, and diarrhea that began earlier today. Patient states she is unable to keep anything down. Patient states she has had similar episodes in the past from food poisoning and became dehydrated. Patient is concerned that she is becoming dehydrated again today. Patient admits to diffuse abdominal cramping. Patient states nothing makes her pain better nothing makes it worse. Patient states she feels dizzy at times. Patient denies any fevers or chills. PFSH PFS Medical History Multiple thyroid nodules Essential hypertension Home Medications ?Medication ?Instructions ?Recorded ?Last Taken ?Type amlodipine 5 mg tablet (Norvasc) 10 mg PO DAILY 11/21/17 Unknown History hydrochlorothiazide 25 mg tablet 25 mg PO DAILY 08/18/22 Unknown History ondansetron 4 mg disintegrating 4 mg PO Q8H PRN PRN Nausea #14 tabs 08/18/22 Unknown Rx tablet Allergy/AdvReac Type Severity Reaction Status Date / Time atorvastatin (From Lipitor) Allergy Other Verified 09/21/23 23:48 Family History Mother Heart disease CHF Hypertension Father Heart disease Hypertension Myocardial infarction Daughter Breast cancer Lyme disease Surgical History Status post biopsy of thyroid gland (~12/2017) Hx of wisdom tooth extraction Hx of bilateral cataract extraction Hx of cholecystectomy Social History Smoking Status: Never smoker second hand exposure: No alcohol intake: never substance use type: does not use caffeine: Yes what type of physical activity do you participate in: none frequency: does not exercise seatbelt use: always ROS ROS ED Constitutional Constitutional ED: Denies chills or fever(s) Eyes Eyes: Denies blurry vision or change in vision ENT ENT ED: Denies rhinorrhea or sore throat Cardiovascular Cardiovascular: Denies chest pain or palpitations Respiratory/Chest Respiratory/Chest: Denies cough or dyspnea Gastrointestinal Gastrointestinal: Reports abdominal pain, diarrhea, nausea and vomiting; Denies melena Genitourinary Genitourinary ED: Denies dysuria or hematuria Musculoskeletal Musculoskeletal: Denies back pain or neck pain Integumentary Reports rash; Denies abscess Neurologic Neurologic: Denies headache(s) or weakness Allergic/Immunologic Allergic/Immunologic ED: Denies mouth swelling or urticaria EXAM Physical Exam Const Vital Signs: 09/21/23 23:46 09/22/23 01:46 09/22/23 03:00 Temperature 96.4 F L Temperature Source Temporal Pulse Rate 95 82 83 Respiratory Rate 20 H 18 16 Blood Pressure 151/66 H 177/69 H 153/53 H Blood Pressure Mean 94 105 86 Pulse Ox 97 94 96 Oxygen Delivery Method Room Air Room Air Room Air Positive well nourished and well developed General Appearance ED: well developed and NAD HEENT Reports dry mucous membranes Mouth ED: Yes dry mucous membranes Mouth: dry mucous membranes Neck supple and no JVD Resp normal respiratory effort and clear to auscultation bilaterally Cardio regular rate and regular rhythm GI non-distended Palpation: soft and tender epigastric, LLQ, RLQ, LUQ, RUQ, periumbilical and suprapubic; Negative for guarding or rebound tenderness present Neuro CN's II-XII intact bilaterally, moves all extremities and no sensory deficits noted Sensorium / Orientation: alert Motor Exam: strength 5/5 throughout Psych mental status grossly normal and thought process normal Skin Skin Narrative: There is an erythematous area over the dorsal aspect of the right forearm. There is no warmth. There is no ecchymosis noted. There are no generalized urticaria noted. There are no petechia noted. Patient states she was stung by an insect last week in this area. MDM MDM MDM Narrative Medical decision making narrative: Differential diagnosis includes gastroenteritis, viral illness, dehydration, pancreatitis, acute kidney injury, electrolyte abnormality, and urinary tract infection. CBC will be obtained to assess for leukocytosis and anemia. Comprehensive metabolic profile will be obtained to assess for hepatic function, renal function, and electrolyte abnormality. Urinalysis will be obtained to assess for urinary tract infection and hematuria. Lipase will be obtained to assess for pancreatitis. Lab Data Attestation: I reviewed the patient's lab results. Lab results narrative: CBC was reviewed. There is a leukocytosis of 22.2. Hemoglobin was slightly elevated at 15.5. Remainder is within normal limits. Comprehensive metabolic profile was reviewed. BUN was slightly elevated at 36. Creatinine was normal at 0.83. Glucose was slightly elevated at 153. Anion gap was normal. CO2 was normal. The remainder is within normal limits. Lipase was reviewed and was normal at 46. Urinalysis was reviewed. There is no evidence of urinary tract infection or hematuria. Labs: Laboratory Results - last 24 hr 09/22/23 09/22/23 00:34 02:04 WBC 22.2 H RBC 5.00 Hgb 15.5 H Hct 45.4 MCV 90.8 MCH 31.0 MCHC 34.1 RDW Std Deviation 39.8 RDW Coeff of Sameer 12.0 Plt Count 345 MPV 10.4 Immature Gran % (Auto) 0.800 Neut % (Auto) 87.0 H Lymph % (Auto) 4.7 L [place] % (Auto) 6.7 Eos % (Auto) 0.5 Baso % (Auto) 0.3 Absolute Neuts (auto) 19.3 H Absolute Lymphs (auto) 1.05 Nucleated RBC % 0 Sodium 139 Potassium 3.8 Chloride 102 Carbon Dioxide 30.0 Anion Gap 7 BUN 36 H Creatinine 0.83 Estim Creat Clear Calc 44.07 Est GFR (MDRD) Af Amer 84 Est GFR (MDRD) Non-Af 70 BUN/Creatinine Ratio 43.2 H Glucose 153 H Calcium 9.9 Total Bilirubin 0.50 AST 37 ALT 35 Alkaline Phosphatase 84 Total Protein 7.5 Albumin 3.8 Globulin 3.7 Albumin/Globulin Ratio 1.0 Lipase 46 Urine Color Yellow Urine Clarity Clear Urine pH 7.0 Ur Specific [place] 1.010 Urine Protein Negative Urine Glucose (UA) Normal Urine Ketones Negative Urine Occult Blood Negative Urine Nitrite Negative Urine Bilirubin Negative Urine Urobilinogen Normal Ur Leukocyte Esterase 25 H Urine RBC 0 SEEN Urine WBC 0 SEEN Ur Squamous Epith Cells 0 SEEN Urine Bacteria 0 SEEN Urine Mucus 0 SEEN Radiography Diagnostic Testing: Clinical Impression(s) from Imaging Studies Abdomen/Pelvis CT 09/22/23 00:49 IMPRESSION: 1. No acute abdominal pelvic abnormality. 2. 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 3. Cholecystectomy. 4. Coronary artery disease. 5. 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 Electronically Signed: Luis aDniel Freeman MD at 2:16 EDT , ADDENDUM: 09/22/23 0224 IMPRESSION: 1. No acute abdominal pelvic abnormality. 2. 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 3. Cholecystectomy. 4. Coronary artery disease. 5. 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 N.B. : The above Results were Read Back by Luis Daniel Freeman MD to Sanford Boss DO, and understanding confirmed on 09/22/2023 02:17:50 (ET). Electronically Signed: Luis Daniel Freeman MD at 2:16 EDT , CT scan of the abdomen pelvis was obtained. There is no acute abnormality noted. There is a solid right renal mass measuring 4.5 cm posteriorly. There is no evidence of diverticulitis. There is no free air or free fluid. This was interpreted by the radiologist was also independently reviewed by myself. Management Discussion w/another healthcare provider: Radiologist Treatment and Re-Evaluation :: Patient was given IV fluids and Zofran here. Patient is feeling better on reevaluation. Patient was advised of her findings. Patient states that her and daughter have had histoplasmosis in the past and she is wondering if this renal mass could be histoplasmosis. Patient was advised that she may need to follow-up with her primary care physician and may need to be referred to urology or oncology for possible biopsy to determine the etiology of this mass. Patient understood and was agreeable with the plan. Patient was instructed drink plenty of fluids. Patient was instructed to follow-up with her primary care physician in 5 to 7 days. All questions were answered. Discharge Plan Triage Chief Complaint: Nausea/Vomiting Other Complaint: Dizziness ED Provider: Sanford Boss Dx/Rx/DC Orders Clinical Impression: Nausea, vomiting, and diarrhea, Dehydration, Mass of right kidney Instructions: ED Diarrhea, Unknown Cause, ED Vomiting (Adult) Prescriptions: No Action amlodipine [Norvasc] 5 mg tablet 10 mg PO DAILY hydrochlorothiazide 25 mg tablet 25 mg PO DAILY Patient Comments: take 1 tablet by mouth once daily ondansetron 4 mg tablet,disintegrating 4 mg PO Q8H PRN PRN (Reason: Nausea) Qty: 14 0RF Primary Care Provider: Fabián Salazar Referrals: Fabián Salazar MD [Primary Care Provider] - 5-7 Days Print Language: Montserratian Disposition Disposition: Home, Self Care
[2023-09-22] MEDS: 0.9% Normal Saline (1000mL) 1,000 ML 999 ML IV (00:37)
[2023-09-22] MEDS: Ondansetron 4 MG/2 ML Vial IV (00:37)
[2023-09-22 00:41] LABS: Absolute Lymphocyte Count 1.05 X10^3/uL (0.83-4.51); Absolute Neutrophil Count 19.3 X10^3/uL (2.0-7.7); Basophil# 0.07 X10^3/uL; Basophil% 0.3 % (0-1); Eosinophils% 0.5 % (0-5); Hematocrit 45.4 % (37-47); Hemoglobin 15.5 g/dL (12.0-15.0); Lymphocyte # 1.05 X10^3/ul (0.83-4.51); Lymphocyte % 4.7 % (19-41); Mean Corp Hgb Conc 34.1 g/dL (32-36); Mean Corpuscular Volume 90.8 fL (81-99); Mean Platelet Vol. 10.4 fl (6.2-12.0); Monocyte# 1.49 X10^3/uL; Monocyte% 6.7 % (0-10); NRBC Flagged by Analyzer 0 % (0-5); Neutrophil # 19.32 X10^3/uL (2.7-7.7); Platelet Count 345 K/mm3 (150-450); RBC Distribution Width SD 39.8 fl (35.1-43.9); White Blood Count 22.2 K/mm3 (4.4-11.0)
--- NOTE | 2023-09-22 00:49 | CT_ITS ---
We are attempting to reach an attending provider to discuss findings. An addendum with communication details will be sent when the communication is complete. EXAM: CT ABDOMEN AND PELVIS WITH INTRAVENOUS CONTRAST CLINICAL INDICATION: Abdominal pain TECHNIQUE: Helically acquired images were obtained of the abdomen and pelvis with intravenous contrast. This CT exam was performed using one or more of the following dose reduction techniques: automated exposure control, adjustment of the mA and/or kV according to patient size, and/or use of iterative reconstruction technique. CONTRAST: 75 cc of Isovue-370 IV. RADIATION DOSE: CTDIvol = 13.05 mGy, DLP = 633.92 mGy-cm COMPARISON: 05/08/2011. FINDINGS: LOWER THORAX: Coronary artery calcifications. Lung bases are clear. No cardiomegaly. No significant pericardial effusion. ABDOMEN: LIVER: Unremarkable. Homogeneous. No focal mass. GALLBLADDER AND BILE DUCTS: Cholecystectomy. No intra- or extrahepatic biliary ductal dilation. PANCREAS: Unremarkable. No focal cystic or solid mass. SPLEEN: Unremarkable. Normal size without focal cystic or solid mass. ADRENALS: Unremarkable. No nodules. KIDNEYS AND URETERS: Heterogeneous solid right renal mass measuring 4.5 cm posteriorly likely renal cell carcinoma. Normal renal size and position. No hydronephrosis. STOMACH AND BOWEL: Numerous diverticula without diverticulitis. No stomach or bowel distention. PELVIS: APPENDIX: No evidence of acute appendicitis. BLADDER: Unremarkable. REPRODUCTIVE: Simple left ovarian cyst measuring 3.0 cm in maximum diameter. No follow-up is necessary. ABDOMEN and PELVIS: INTRAPERITONEAL SPACE: Unremarkable. No ascites or other fluid collection. No free air. BONES/JOINTS: Unremarkable. No suspicious lytic or blastic abnormality. SOFT TISSUES: Unremarkable. No discrete abdominal or pelvic wall hernia. VASCULATURE: See above. LYMPH NODES: Unremarkable. No enlarged lymph nodes. CT/Abdomen/Pelvis W IV Cont ONLY IMPRESSION: 1. No acute abdominal pelvic abnormality. 2. 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 3. Cholecystectomy. 4. Coronary artery disease. 5. 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 Electronically Signed: Luis Daniel Freeman MD at 2:16 EDT ,
[2023-09-22 01:01] LABS: AST(SGOT) 37 U/L (15-37); Alanine Aminotransfer ALT/SGPT 35 U/L (13-56); Albumin, Serum 3.8 g/dL (3.2-5.0); Alkaline Phosphatase 84 U/L (45-117); Anion Gap 7 (5-15); BUN 36 mg/dL (7-18); BUN/Creat Ratio 43.2 RATIO (10-20); Calcium,Total 9.9 mg/dL (8.5-10.1); Chloride 102 mmol/L (98-107); Creatinine, Serum 0.83 mg/dL (0.55-1.02); EST Glomerular Filtration Rate 70 mL/min (>60); Est Glom Filt Rate - Afr Amer 84 mL/min (>60); Estimated Creatinine Clearance 44.07 ml/min; Globulin 3.7 g/dL (2.2-4.2); Glucose 153 mg/dL (74-106); Lipase 46 U/L (13-75); Potassium 3.8 mmol/L (3.5-5.1); Protein, Total 7.5 g/dL (6.4-8.2); Sodium Level 139 mmol/L (136-145)
[2023-09-22 01:46] VITALS: BP 177/69; PULSE 82; RESP 18; O2SAT 94
[2023-09-22 02:07] LABS: Bacteria 0 SEEN /hpf (None Seen); Mucous, Urine 0 SEEN /hpf (<or=2+); Red Blood Cells-Urine 0 SEEN /hpf (0-5); Squamous Epithelial Cells - UA 0 SEEN /hpf (5-10); White Blood Cells 0 SEEN /hpf (0-5)
[2023-09-22 03:00] VITALS: BP 153/53; PULSE 83; RESP 16; O2SAT 96
[2023-09-22 03:26] LABS: Color, Urine Yellow (Yellow); Glucose, Dipstick Normal (Normal); Ketone-Dipstick Negative (Negative); Leukocyte Esterase-Dipstick 25 /ul (Negative); Nitrite-Dipstick Negative (Negative); Occult Blood-Urine Negative /ul (Negative); Protein-Dipstick Negative (Negative); Urine Bilirubin Dipstick Negative (Negative); Urine Clarity Clear (Clear); Urine Urobilinogen Normal (Normal)
[2023-09-22 04:08] VITALS: BP 168/66; PULSE 87; RESP 20; TEMP 36.4; O2SAT 96
== END 2023-09-22 04:36 | disposition home or self-care (01) ==
PROVIDERS: Emergency Provider Emergency Medicine; PCP Family Medicine; Visit Provider Emergency Medicine
DX: R11.2 Nausea with vomiting, unspecified (principal); R19.7 Diarrhea, unspecified; E86.0 Dehydration; N28.89 Other specified disorders of kidney and ureter
CPT/HCPCS: 74177; 80053; 81001; 83690; 85025; 96361; 96374; 96376; 99284; J7030; Q9967; A4216; J2405

== ENCOUNTER → 2023-09-27 | Outpatient (CLI) | payer BC, SELFPAY ==
[2023-09-27 17:42] LABS: Absolute Lymphocyte Count 1.44 X10^3/uL (0.83-4.51); Basophil# 0.06 X10^3/uL; Basophil% 0.8 % (0-1); Eosinophil# 0.07 X10^3/uL; Hematocrit 45.1 % (37-47); Hemoglobin 15.2 g/dL (12.0-15.0); Lymphocyte # 1.44 X10^3/ul (0.83-4.51); Lymphocyte % 19.7 % (19-41); Mean Corp Hgb Conc 33.7 g/dL (32-36); Mean Corpuscular Hgb 30.8 pg (27.0-32.0); Mean Corpuscular Volume 91.5 fL (81-99); Mean Platelet Vol. 11.4 fl (6.2-12.0); Monocyte# 0.74 X10^3/uL; Monocyte% 10.1 % (0-10); NRBC Flagged by Analyzer 0 % (0-5); Neutrophil # 4.98 X10^3/uL (2.7-7.7); Neutrophil % 68.1 % (47-70); Platelet Count 350 K/mm3 (150-450); RBC Distribution Width CV 11.9 % (11.6-14.6); RBC Distribution Width SD 39.8 fl (35.1-43.9); Red Blood Count 4.93 M/mm3 (4.2-5.4); White Blood Count 7.3 K/mm3 (4.4-11.0)
== END | disposition home or self-care (01) ==
LOC: MFPLAB 15:35
PROVIDERS: PCP Family Medicine; Visit Provider Family Medicine
DX: D72.829 Elevated white blood cell count, unspecified (principal)
CPT/HCPCS: 36415; 85025

== ENCOUNTER 2023-11-27 10:52 | Inpatient (IN) | payer MEDICARE, BC, SELFPAY ==
--- NOTE | 2023-11-21 11:48 | EKG12_ITS ---
Test Reason : PRE OP Blood Pressure : / mmHG Vent. Rate : 070 BPM Atrial Rate : 070 BPM P-R Int : 168 ms QRS Dur : 120 ms QT Int : 418 ms P-R-T Axes : 063 055 021 degrees QTc Int : 451 ms Normal sinus rhythm Low voltage QRS Right bundle branch block Abnormal ECG Confirmed by Luis Daniel Bustos ([id number]), tape editor LENARD CARRASCO ([id number]) on 11/25/2023 10:18:39 AM Referred By: Alvin Hickey Confirmed By:Luis Daniel Bustos
--- NOTE | 2023-11-21 11:50 | RAD_ITS ---
STUDY: X-RAY CHEST REASON FOR EXAM: Female, 83 years old. PREOP TECHNIQUE: PA and lateral views of the chest. COMPARISON: None. FINDINGS: The lungs are clear and expanded. There is no demonstrated pleural abnormality. Normal size heart. Normal mediastinum and shun. Normal visualized pulmonary arteries. Normal visualized aortic arch and descending thoracic aorta. Normal visualized thoracic spine. Normal visualized ribs, clavicles, and shoulders. There is no demonstrated abnormality of the visualized soft tissue structures of the upper abdomen. RAD/Chest PA and Lateral IMPRESSION: Normal x-ray examination of the chest. Electronically Signed: Virgil Madera MD at 8:49 EDT ,
[2023-11-21 12:54] LABS: Color, Urine Yellow (Yellow); Glucose, Dipstick Normal (Normal); Ketone-Dipstick Negative (Negative); Leukocyte Esterase-Dipstick 25 /ul (Negative); Nitrite-Dipstick Negative (Negative); Occult Blood-Urine 10 /ul (Negative); Protein-Dipstick Negative (Negative); Specific Gravity, Urine 1.015 (1.002-1.030); Urine Bilirubin Dipstick Negative (Negative); Urine Clarity Clear (Clear); Urine Urobilinogen Normal (Normal)
[2023-11-21 13:06] LABS: Prothrombin Time (Protime)PT. 13.6 SECONDS (11.7-14.9)
[2023-11-21 13:07] LABS: Partial Thromboplast Time 25.3 Seconds (24.1-36.2)
[2023-11-27] VITALS (12 sets, daily range): BP systolic 113–161; BP diastolic 45–61; PULSE 58–69; RESP 16; TEMP 36.6; O2SAT 94–98; BMI 24.9
[2023-11-27] MEDS: Lactated Ringers 1,000 ML 15 ML IV (06:42)
--- NOTE | 2023-11-27 07:23 | PRE.ANES_ITS ---
ASA Classification* ASA Classification ASA Classification: 2 Assessment & Plan Anesthesia* Anesthesia Assessment Anesthesia Assessment: Discussed sedation and/or anesthesia options, risks, benefits, and alternatives with patient/parents/legal guardian/POA. Questions invited. The patient/parents/legal guardian/POA seems to understand and agrees to proceed with anesthesia plan. Reviewed the physical assessment, medical history, allergy history and patient home medications list prior to surgery/procedure/anesthetic and documented any changes. Performed airway and anesthesia risk assessments. Anesthesia Type Anesthesia Type: General Anesthesia Focused Assessment* Airway Assessment Mouth opens: >3 cm Mallampati Score: II Focused Labs Anesthesia Preop lab: CBC WBC 7.3 K/mm3 (4.4-11.0) 09/27/23 15:35 RBC 4.93 M/mm3 (4.2-5.4) 09/27/23 15:35 Hgb 15.2 g/dL (12.0-15.0) H 09/27/23 15:35 Hct 45.1 % (37-47) 09/27/23 15:35 Plt Count 350 K/mm3 (150-450) 09/27/23 15:35 CHEMISTRY Potassium 3.8 mmol/L (3.5-5.1) 09/22/23 00:34 Sodium 139 mmol/L (136-145) 09/22/23 00:34 Magnesium 2.4 mg/dL (1.6-2.6) 11/04/18 09:31 BUN 36 mg/dL (7-18) H 09/22/23 00:34 Creatinine 0.83 mg/dL (0.55-1.02) 09/22/23 00:34 Glucose 153 mg/dL (74-106) H 09/22/23 00:34 TSH 1.43 uIU/mL (0.358-3.74) 10/23/22 16:42 COAG PT 13.6 SECONDS (11.7-14.9) 11/21/23 12:14 Pre-Assessment Diagnosis/Proposed Procedure Planned Operative Procedure(s): LAP RIGHT ROBOTIC PARTIAL NEPHRECTOMY Anesthesia History 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 When Was Last Pacemaker Check QUESTION #4 FULL TEXT: You/Your Family Experience fever (hyperthermia) with Anesthesia Last Oral Intake Last Oral intake: Last Oral Intake NPO since Meds taken in AM with sips of water? 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 operator Female Yes 11/13/23 09:07 HX of Motion Sickness No 11/13/23 09:07 HX of N/V After Surgery No 11/13/23 09:07 Non-Smoker Yes 11/13/23 09:07 Duration of Surgery greater Yes 11/13/23 09:07 than 60 minutes Number of Risk Factors 3 11/13/23 09:07 PONV Score Moderate Risk 11/13/23 09:07 Height & Weight Height & Weight: Anesthesia: Height & Weight Height 5 ft 1 in 11/26/23 07:51 Weight: 59.874 kg 11/26/23 07:51 Respiratory Assessment Respiratory Assessment - slitter and rewinder machine operator: Respiratory Tract Infection Hx - slitter and rewinder machine operator Hx Respiratory Tract Infection No 11/13/23 09:07 STOP Sleep Apnea STOP Sleep Apnea - slitter and rewinder machine operator: STOP Sleep Apnea - slitter and rewinder machine operator Hx Hypertension Yes: CONTROLLED WITH MED 11/13/23 09:07 Hx Sleep Apnea No 11/13/23 09:07 CPAP BIPAP Do you snore loudly (louder No 11/13/23 09:07 than talking or can be heard Do you often feel tired/ No 11/13/23 09:07 fatigued/ sleepy during daytime? Has anyone observed you stop No 11/13/23 09:07 breathing during sleep? STOP Results Negative 11/13/23 09:07 QUESTION #5 FULL TEXT : Do you snore loudly (louder than talking or can be heard through closed doors)? 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 Specify any problems Hx of Preganancy in last 3 No 11/13/23 09:07 Months Nurse Filling Out Transfusion DSCHRIBER 11/13/23 09:07 & Questions: Date: 11/13/23 11/13/23 09:07 Time: 09:11/13/23 09:07 Patient unable to answer at this time (ie. confused, unrespo /Reproduction History /Reproductive History - slitter and rewinder machine operator: /Reproductive Hx- slitter and rewinder machine operator Hx Now No 11/13/23 09:07 Gestational Age (in weeks): EDC: Hx Hx Para Hx Section SAB No 11/13/23 09:07 Active Medications Active Medications: Current Medications Generic Name Dose Route Start Last Admin Trade Name Freq PRN Reason Stop Dose Admin Cefazolin Sodium 2 gm/ Sodium 110 mls @ 150 mls/hr 11/27/23 07:30 Chloride IV 11/27/23 08:13 PREOP ONE Lactated Ringer's 1,000 mls @ 15 mls/hr 11/27/23 06:45 11/27/23 06:42 IV 15 mls/hr .Q48H ALEXANDRE Administration PFSH Medical History Wears glasses Wears hearing aid Post-menopausal History of renal disease High cholesterol Easy bruising Dietary restriction Non-smoker Food poisoning Multiple thyroid nodules Essential hypertension Home Medications ?Medication ?Instructions ?Recorded ?Last Taken ?Type amlodipine 5 mg tablet (Norvasc) 10 mg PO DAILY 11/21/17 11/27/23 History ondansetron 4 mg disintegrating 4 mg PO Q8H PRN PRN Nausea #10 tabs 09/22/23 11/26/23 Rx tablet BIOFORTA 1 tab PO DAILY 11/13/23 11/26/23 History cholecalciferol (vitamin D3) 125 125 mcg PO DAILY 11/13/23 11/26/23 History mcg (5,000 unit) tablet (Vitamin D3) mecobalamin (vitamin B12) 5,000 5,000 mcg PO DAILY 11/13/23 11/26/23 History mcg chewable tablet vitamin E acetate 100 unit capsule 180 unit PO DAILY 11/13/23 11/26/23 History Allergy/AdvReac Type Severity Reaction Status Date / Time atorvastatin (From Lipitor) Allergy Other Verified 11/27/23 06:42 Family History Mother Heart disease CHF Hypertension Father Heart disease Hypertension Myocardial infarction Daughter Breast cancer Lyme disease Surgical History Status post biopsy of thyroid gland (~12/2017) Hx of wisdom tooth extraction Hx of bilateral cataract extraction Hx of cholecystectomy Social History Smoking Status: Never smoker second hand exposure: No alcohol intake: never substance use type: does not use caffeine: Yes what type of physical activity do you participate in: none frequency: does not exercise seatbelt use: always Review of Systems (Anesthesia) ROS Narrative System reviewed and no additional complaints, except as documented.
[2023-11-27] MEDS: Cefazolin 2 GM in 0.9% Normal Saline (100mL Bag) 100 ML IV (07:26)
--- NOTE | 2023-11-27 07:30 | KID_PTH ---
PATIENT: FRANK LI LOC: [facility] U#:[id number] AGE/SX: 83/F ROOM: [facility]305 RE11/27/[address]: Dr. Alvin Hickey MD : 1940 BED: 1 DIS: 11/29/2023 SPEC #: [id number] RECD: 11/27/23 14:05 STATUS: YG KAYZoe #: [id number] ANGELA: 11/27/23 07:[address]: Alvin Hickey DEPT: SURGICAL PATHOLOGY RECD BY: Grace Byers ENTERED: 11/28/23 08:05 SP TYPE: KIDNEY OTHR DR: Dr. Fabián Salazar MD Tissues: Kidney, NOS Procedures: Surgery Specimen Level V HEADER OPERATION: Laparoscopic robotic partial nephrectomy PRE-OP DIAGNOSIS: Right renal mass TISSUE SUBMITTED: Right renal tissue and mass MICROSCOPIC DIAGNOSIS Renal tissue and mass, partial nephrectomy: Oncocytoma. CLEMENTINA/ 12/02/2023 COMMENT Case has been reviewed in consultation with Dr. Robertson who concurs with the above diagnosis. IDC:AM MICROSCOPIC DESCRIPTION Slides are reviewed. GROSS DESCRIPTION Received in fixative is one container labeled with the patient's name and designated Right renal tissue and mass. The specimen consists of a partial nephrectomy specimen weighing 84gm and measuring 6.5 x 6.5 x 5.0cm. Perirenal adipose tissue is noted. Parenchymal resection margin is inked black, and rest of the surface is inked blue. Sections reveal ill-defined pink hemorrhagic mass with focal area of softening measuring 3.5 x 3.0 x 4.0cm. Sections will be submitted after fixation. . 11/28/2023 Kosher Inspector sections of tumor with adjacent renal tissue including resection margins are submitted in ten cassettes. CLEMENTINA. 11/29/2023 TC:1 CPT:68089
[2023-11-27] MEDS: Bupivacaine Mpf 0.5% 30 ML VIAL (10:55)
--- NOTE | 2023-11-27 10:56 | DCINST_ITS ---
Discharge Instructions Diet Discharge Diet: No restrictions Activity Discharge Activity: Return to Normal Activity and May Not Drive (while taking narcotic pain medications.) Lifting Restrictions: No lifting over 10 pounds yeah Dressing / Incision Call your doctor if your incision/area has: Sudden Increased Bleeding Call your doctor if you observe: Fever of 101 or Higher Follow Up Care Please Follow Up With: Alvin Hickey MD When: Call [phone] for an appointment Test Results: Test results from this visit will be discussed in further detail at your follow- up appointment, if applicable. Discharge Plan Admission Primary Reason for Your Visit: Right partial nephrectomy Attending Provider: Alvin Hickey Primary Care Provider: Fabián Salazar Instructions Patient Instructions: Nephrectomy Dc, Nephrectomy Ch Dc Print Language: Luxembourgish Discharge Orders/Prescriptions Prescriptions: New oxycodone 5 mg tablet 5 mg PO Q6H PRN (Reason: pain) 7 Days Qty: 20 0RF docusate sodium [Colace] 100 mg capsule 100 mg PO BID Qty: 20 0RF Continued amlodipine [Norvasc] 5 mg tablet 10 mg PO DAILY ondansetron 4 mg tablet,disintegrating 4 mg PO Q8H PRN PRN (Reason: Nausea) Qty: 10 0RF BIOFORTA 1 tab PO DAILY mecobalamin (vitamin B12) 5,000 mcg tablet,chewable 5,000 mcg PO DAILY vitamin E acetate 100 unit capsule 180 unit PO DAILY cholecalciferol (vitamin D3) [Vitamin D3] 125 mcg (5,000 unit) tablet 125 mcg PO DAILY Referrals / Follow Up: Alvin Hickey MD [Med Staff - Active Staff] - Fabián Salazar MD [Primary Care Provider] - Disposition Disposition (needs filled in before D/C Order can be placed): Home, Self Care
--- NOTE | 2023-11-27 10:56 | PCM.HP.STD ---
HPI - General General Date of Service: 11/27/23 Chief Complaint: Right renal mass HPI Narrative FRANK LI, is a 83 F who presents a robotic right partial nephrectomy for a very deep large renal mass PFSH Medical History Wears glasses Wears hearing aid Post-menopausal History of renal disease High cholesterol Easy bruising Dietary restriction Non-smoker Food poisoning Multiple thyroid nodules Essential hypertension Home Medications ?Medication ?Instructions ?Recorded ?Last Taken ?Type amlodipine 5 mg tablet (Norvasc) 10 mg PO DAILY 11/21/17 11/27/23 History ondansetron 4 mg disintegrating 4 mg PO Q8H PRN PRN Nausea #10 tabs 09/22/23 11/26/23 Rx tablet BIOFORTA 1 tab PO DAILY 11/13/23 11/26/23 History cholecalciferol (vitamin D3) 125 125 mcg PO DAILY 11/13/23 11/26/23 History mcg (5,000 unit) tablet (Vitamin D3) mecobalamin (vitamin B12) 5,000 5,000 mcg PO DAILY 11/13/23 11/26/23 History mcg chewable tablet vitamin E acetate 100 unit capsule 180 unit PO DAILY 11/13/23 11/26/23 History docusate sodium 100 mg capsule 100 mg PO BID #20 caps 11/27/23 Unknown Rx (Colace) oxycodone 5 mg tablet 5 mg PO Q6H PRN pain 7 days #20 11/27/23 Unknown Rx tabs Allergy/AdvReac Type Severity Reaction Status Date / Time atorvastatin (From Lipitor) Allergy Other Verified 11/27/23 06:42 Family History Mother Heart disease CHF Hypertension Father Heart disease Hypertension Myocardial infarction Daughter Breast cancer Lyme disease Surgical History Status post biopsy of thyroid gland (~12/2017) Hx of wisdom tooth extraction Hx of bilateral cataract extraction Hx of cholecystectomy Social History Smoking Status: Never smoker second hand exposure: No alcohol intake: never substance use type: does not use caffeine: Yes what type of physical activity do you participate in: none frequency: does not exercise seatbelt use: always Vital Signs Vital Signs Vital Signs: Weight Weight: 59.874 kg
--- NOTE | 2023-11-27 10:57 | OP.PCM_ITS ---
Report of Operation Date of Procedure: 11/27/23 Pre-Operative Diagnosis: Right renal mass Post-Operative Diagnosis: Same Surgery/Procedure Performed:: Laparoscopic robotic assisted right partial nephrectomy Description of Surgical Findings:: Indication is an 83-year-old female who was incidentally found to have a large 4.5 cm mass extending deep into the renal hilum of the right kidney the mass was mostly exophytic but does go fairly deep after reviewing the images with the patient I thought that the mass was amenable to a partial nephrectomy. So organ to proceed with a laparoscopic robotic partial nephrectomy. Patient was taken back to the operating room after smooth induction of anesthesia she is placed supine on the table Solano catheter was placed and then she was placed in full flank position with the right side up make sure that she had an axillary roll that make sure that her neck and arms and legs were all secured to the table all pressure points were padded. The patient was then prepped and draped in usual sterile fashion for approach to the right kidney laparoscopically marked out the incisions on the abdomen I then made a small incision in the camera port site put a Veress needle into the. Needle cavity filled the tip peritoneal cavity with CO2 gas and then placement camera port and then we looked in with the camera and then we placed in her right port left port and a second left port. And then we placed an air seal port for the certified registered dental assistant. First thing I did was incised a lot of adhesions from her prior gallbladder surgery that she had done laparoscopically in the past once this was freed up then I incised the white line of Toldt and reflected the colon off the kidney stenting starting inferiorly all the way up to the kidney reflecting the soft of the kidney and the kidney fat I then kocherized the duodenum I think it underneath the fat of the kidney and used a fourth on the elevate the kidney up we then followed the vena cava up to encountered the renal vein and then we just dissected and right behind the renal vein was a renal artery there was only renal 1 renal artery. This was dissected out so we could clamp it. I then used the laparoscopic ultrasound to identify the tumor the tumor was lower pole posterior and exophytic partially but I did not extend into the hilum. I had to completely mobilize the kidney in order to get access to the tumor the kidney was mobilized in complete fashion all the way around reflected off the sidewall pulling off the liver and then I then opened up the fat over the tumor and then dissected the fat all the way around the tumor circumferentially the very tricky part was that the ureter was coming in posterior right underneath the tumor so the ureter had to be freed up from the tumor this was identified as the ureter that was moving underneath the kidney and looked like an ultrasound of the tumor was abutting the collecting system and the ureter underneath the kidney. I then scored all the way around the incision site we used a laparoscopic ultrasound to delineate the safe margins. I then placed 2 bulldog clamps on the artery the artery was clamped time was marked by the nurses and then we proceeded with the resection using cold knife I then incised the along the prior incision site that was made to leon out the safer approach all the way around the kidney I then went deep down inferiorly and then using blunt dissection I was able to get underneath the tumor and they could see that the tumor was extending deep into the hilum and then right onto the collecting system I then got into the collecting system and pulled peeled the tumor off the collecting system and there was a complete resection enucleating the tumor off the collecting system and then the tumor then rolled out of the defect and then I incised the remaining parenchyma holding the tumor in place and then the tumor was placed in Endo Catch bag it was a complete gross resection with no violations. Then at this point we used V-Loc stitch and I suture-ligated several spots in the defect site there was a small little opening into the collecting system and this was closed from one of the infundibulum and then I could see the entire collecting system but it was not injured and then the 2 sites that were bleeding then when suture-ligated with the V-Loc stitch I then unclamped to the artery and then looking at the defect with unclamped artery so using early unclamping I checked for more bleeding there was no major bleeding and then there was 1 small site that this was also suture-ligated with another V-Loc stitch and then there was just some minor oozing but no bleeding from the base of the resection site so then I placed Surgiflo into the base of his section site and then on top of that we placed Surgicel on top of that and then we closed the edges up with an 0 Vicryl running stitch to complete the right free I had to do this very lightly with very minimal tension since it was right on the collecting system but I did not want to cause obstruction of the collecting system. After this was closed up then we flipped the kidney back to normal position we irrigated copiously we lowered the pressure to 5 mm there was no bleeding whatsoever we then undocked the robot came out of the abdomen we put the tumor that was in Endo Catch bag into the camera port I extended the incision the camera port or extracted the tumor through the camera port and then closed the extraction site with interrupted 0 Vicryl's. We then went back into the abdomen inspected again there was no bleeding again after 10 minutes of extracting the tumor with no pneumoperitoneum then at this point then we closed the 12 mm port with a Raul Jesus stitch this was the air seal port and then all the ports were removed under direct resolution there is no signs of bleeding and then then the certified registered dental assistant then closed all the incision sites the patient's anesthetic is currently being reversed she is clinically stable vitals are stable and successful resection of the tumor completely minimal bleeding during the case estimated blood loss blood loss about 200 cc. Patient anesthetic is currently reversed and her incisions were all closed with subcuticular stitches with ba ndages and dressings placed. Surgeon: Alvin Hickey Type of Anesthesia: General Drains: solano Estimated Blood Loss (mL): 200 Admit VTE Documentation VTE Present on Admission: No VTE Mechan Device Prophylaxis: SCD's VTE Pharm Prophylaxis ordered?: No
--- NOTE | 2023-11-27 11:24 | PCM.POST.ANE ---
Anesthesia: Postop Eval I Current Vital Signs Temperature: 97.9 F Pulse Rate: 61 Blood Pressure: 126/46 Respiratory Rate: 16 Pulse Ox: 96 Oxygen Delivery Method: Room Air Assessment Airway patent: Yes Spontaneous unlabored respirations: Yes Mental status: Awake and Calm nausea: No Vomiting: No Anesthesia Complication: No Fluid Hydration Crystalloid volume administer (ml): 1,400 Total IV fluid infused: 1,400 Progress Note Anesthesia document: Postop Eval 1 completed: Yes
[2023-11-27] MEDS: 0.9% Normal Saline (1000mL) 1,000 ML 125 ML IV ×2 (13:20→21:06)
[2023-11-27] MEDS: Ketorolac 15 MG/ML Vial IV (13:20)
[2023-11-27] MEDS: oxyCODONE 5 MG Tablet PO (15:46)
[2023-11-27] MEDS: Acetaminophen 325 MG Tablet 650 MG PO (15:46)
--- NOTE | 2023-11-27 16:31 | POSTOPAN2_ITS ---
Anesthesia Postop Eval I Sum Postop Eval Completion status Anesthesia document: Postop Eval 1 completed: Yes Anesthesia Postop Eval I Summary Anesthesia Postop Eval I Summary: Anesthesia Postop Eval I: Assessment Summary Airway patent Yes 11/27/23 11:25 [email or web address] [email or web address] Spontaneous unlabored Yes 11/27/23 11:25 CARTON [email or web address] respirations Mental status Awake,Calm 11/27/23 11:25 [email or web address] [email or web address] nausea No 11/27/23 11:25 CARTON [email or web address] Vomiting No 11/27/23 11:25 CARTON [email or web address] Anesthesia Postop Eval I: Fluid Summary Crystalloid volume administer 1,400 11/27/23 11:25 CARTON [email or web address] (ml) Colloids volume administered ( ml) Blood Product volume administered (ml) Total IV fluid infused 1,400 11/27/23 11:25 CARTON [email or web address] Anesthesia Postop Eval I: Summary Notes Anesthesia Complication No 11/27/23 11:25 CARTON [email or web address].[email or web address] Anesthesia Complication Comment: Post-operative progress note Anesthesia: Postop Eval II Evaluation Mental status: Awake and Calm Pain Level: 2 nausea: No Vomiting: No Complications Anesthesia Complication: No
--- NOTE | 2023-11-27 16:31 | PCM.POSTANE2 ---
Anesthesia Postop Eval I Sum Postop Eval Completion status Anesthesia document: Postop Eval 1 completed: Yes Anesthesia Postop Eval I Summary Anesthesia Postop Eval I Summary: Anesthesia Postop Eval I: Assessment Summary Airway patent Yes 11/27/23 11:25 CLINICAL REGISTERED NURSE.[email or web address] Spontaneous unlabored Yes 11/27/23 11:25 CLINICAL REGISTERED NURSE.GDOTT respirations Mental status Awake,Calm 11/27/23 11:25 CLINICAL REGISTERED NURSE.GDOTT nausea No 11/27/23 11:25 CLINICAL REGISTERED NURSE.GDOTT Vomiting No 11/27/23 11:25 CLINICAL REGISTERED NURSE.GDOTT Anesthesia Postop Eval I: Fluid Summary Crystalloid volume administer 1,400 11/27/23 11:25 CLINICAL REGISTERED NURSE.GDOTT (ml) Colloids volume administered ( ml) Blood Product volume administered (ml) Total IV fluid infused 1,400 11/27/23 11:25 CLINICAL REGISTERED NURSE.GDOTT Anesthesia Postop Eval I: Summary Notes Anesthesia Complication No 11/27/23 11:25 CLINICAL REGISTERED NURSE.GDOTT Anesthesia Complication Comment: Post-operative progress note Anesthesia: Postop Eval II Evaluation Mental status: Awake and Calm Pain Level: 2 nausea: No Vomiting: No Complications Anesthesia Complication: No
[2023-11-27] MEDS: Docusate Sodium 100 MG Capsule 200 MG PO (21:06)
[2023-11-28 00:52] VITALS: BP 115/46; PULSE 67; RESP 16; TEMP 36.6; O2SAT 97
[2023-11-28] MEDS: 0.9% Normal Saline (1000mL) 1,000 ML 125 ML IV (04:49)
[2023-11-28 04:50] VITALS: BP 141/51; PULSE 67; RESP 16; TEMP 36.6; O2SAT 95
[2023-11-28 06:36] LABS: Hematocrit 31.7 % (37-47); Hemoglobin 10.3 g/dL (12.0-15.0); Mean Corp Hgb Conc 32.5 g/dL (32-36); Mean Corpuscular Hgb 30.7 pg (27.0-32.0); Mean Corpuscular Volume 94.6 fL (81-99); Mean Platelet Vol. 11.2 fl (6.2-12.0); Platelet Count 209 K/mm3 (150-450); RBC Distribution Width CV 11.9 % (11.6-14.6); RBC Distribution Width SD 41.5 fl (35.1-43.9); Red Blood Count 3.35 M/mm3 (4.2-5.4)
[2023-11-28 07:08] LABS: Anion Gap 4 (5-15); BUN 13 mg/dL (7-18); BUN/Creat Ratio 18.4 RATIO (10-20); Calcium,Total 8.2 mg/dL (8.5-10.1); Chloride 110 mmol/L (98-107); EST Glomerular Filtration Rate 85 mL/min (>60); Est Glom Filt Rate - Afr Amer 102 mL/min (>60); Estimated Creatinine Clearance 45.82 ml/min; Glucose 95 mg/dL (74-106); Potassium 3.8 mmol/L (3.5-5.1); Sodium Level 139 mmol/L (136-145)
--- NOTE | 2023-11-28 07:27 | PN.URO_ITS ---
Subjective Subjective 83-year-old female status post a right robotic partial nephrectomy doing well, has a Deluca in place urine is clear she has minimal soreness no severe pain. Today the plan is to DC Deluca, Hep-Lock IV fluids, advance to regular diet, ambulate. Most likely discharge tomorrow morning Objective Data Objective Data Vital Signs: Vital Signs Temp Pulse Resp BP Pulse Ox O2 Del Method O2 Flow Rate 97.8 F 67 16 141/51 H 95 Room Air 2 11/28/23 04:50 11/28/23 04:50 11/28/23 04:50 11/28/23 04:50 11/28/23 04:50 11/28/23 04:50 11/27/23 13:03 Oxygen Flow Rate (L/min) 2 Oxygen Delivery Method Room Air Weight: 59.87 kg Body Mass Index (BMI) 24.9 Intake & Output: Intake and Output for Last 24 Hours 11/26/23 11/27/23 11/28/23 23:59 23:59 23:59 Intake Total 2178.33 / 2178.33 1064.58 / 1064.58 Output Total 675 / 675 900 / 900 Balance 1503.33 / 1503.33 164.58 / 164.58 Lab / Micro Data 11/28/23 05:42 11/28/23 05:42 Labs: Laboratory Results - last 24 hr 11/28/23 05:42: WBC 8.0, RBC 3.35 L, Hgb 10.3 L, Hct 31.7 L, MCV 94.6, MCH 30.7, MCHC 32.5, RDW Std Deviation 41.5, RDW Coeff of Sameer 11.9, Plt Count 209, MPV 11.2, Sodium 139, Potassium 3.8, Chloride 110 H, Carbon Dioxide 25.0, Anion Gap 4 L, BUN 13, Creatinine 0.70, Estim Creat Clear Calc 45.82, Est GFR (MDRD) Af Amer 102, Est GFR (MDRD) Non-Af 85, BUN/Creatinine Ratio 18.4, Glucose 95, C alcium 8.2 L
[2023-11-28 08:52] VITALS: BP 119/41; PULSE 68; RESP 16; TEMP 36.6; O2SAT 96
[2023-11-28] MEDS: Ketorolac 15 MG/ML Vial IV ×2 (08:53→21:04)
[2023-11-28] MEDS: Docusate Sodium 100 MG Capsule 200 MG PO (08:53)
[2023-11-28] MEDS: amLODIPine 10 MG Tablet PO (08:53)
--- NOTE | 2023-11-28 11:18 | CASEMGMT ---
STEVEN SALEH Assessment Face to Face with patient for initial transition planning/care coordination assessment. RN CM introduced self and role at [facility], pt voices understanding. Pt is A&Ox4 and is resting comfortably in the chair and is calm. Care providers, pharmacy, and demographics verified. Admitting dx: Lap Robotic Partial Nephrectomy PCP: Fabián Salazar Specialists: Ruperto Mayers Pharmacy: [facility] Insurance: MCR A Only, [place] Prescription Benefit: Yes LNOK: Lev Jiménez (Son) Living Arrangements: Pt lives alone in a two story home with a FFSU and 2 steps to enter with bilateral handrails. Pt states that her son is staying with her for about the next 6 weeks ADLs/IADLs: Ind Transportation: Self, Son DME: Cane, grab bars, shower chair HHC/SNF: Denies history or needs Pt?s goal: Home Plan: Home with the support of the pt son and no additional needs. Pt was cleared by PT. Pt denies the need for HHC, OP Tx, or further homegoing needs at this time. CM to continue to follow. Stephen Florian RN, CM
[2023-11-28 13:58] VITALS: BP 112/72; PULSE 77; RESP 16; TEMP 36.9; O2SAT 96
[2023-11-28 21:00] VITALS: BP 143/53; PULSE 80; RESP 16; TEMP 36.8; O2SAT 96
[2023-11-28] MEDS: 0.9% Saline Lock 10 ML Syringe IV (21:05)
[2023-11-28] MEDS: Acetaminophen 325 MG Tablet 650 MG PO (21:05)
[2023-11-29 05:10] VITALS: BP 137/66; PULSE 76; RESP 16; TEMP 36.8; O2SAT 94
[2023-11-29] MEDS: Acetaminophen 325 MG Tablet 650 MG PO ×2 (05:17→13:22)
[2023-11-29] MEDS: oxyCODONE 5 MG Tablet PO ×2 (05:17→13:23)
--- NOTE | 2023-11-29 06:47 | NURSING ---
walked multiple laps in whiting gait steady
[2023-11-29] MEDS: amLODIPine 10 MG Tablet PO (10:11)
[2023-11-29 10:39] VITALS: BP 136/61; PULSE 73; RESP 18; TEMP 36.7; O2SAT 94
--- NOTE | 2023-11-29 11:21 | PCM.DC.SUM ---
Providers Date of Admission: 11/27/23 Date of Discharge: 11/29/23 Primary Care Physician: Dr. Fabián Salazar MD Reason For Visit: Lap Robotic Partial Nephrectomy Medications at Discharge Home Medications amlodipine 5 mg tablet (Norvasc) 10 mg PO DAILY 11/21/17 ondansetron 4 mg disintegrating tablet 4 mg PO Q8H PRN PRN Nausea #10 tabs 09/22/23 BIOFORTA 1 tab PO DAILY 11/13/23 cholecalciferol (vitamin D3) 125 mcg (5,000 unit) tablet (Vitamin D3) 125 mcg PO DAILY 11/13/23 mecobalamin (vitamin B12) 5,000 mcg chewable tablet 5,000 mcg PO DAILY 11/13/23 vitamin E acetate 100 unit capsule 180 unit PO DAILY 11/13/23 docusate sodium 100 mg capsule (Colace) 100 mg PO BID #20 caps 11/27/23 oxycodone 5 mg tablet 5 mg PO Q6H PRN pain 7 days #20 tabs 11/27/23 Hospital Course Summary of Care Provided Hospital Course: s/p right partial nephrectomy dc home in good condition. Physical Exam Const alert and oriented x3 General Appearance: cooperative HEENT normocephalic, head/scalp atraumatic, EAC's normal and TM's normal bilaterally Eyes PERRL and EOMs intact bilaterally Pupil: sluggish Neck no lymphadenopathy, supple and no JVD General: trachea midline Lymph Lymphatic: no lymphadenopathy noted, lymphedema and lymphadenopathy Resp normal respiratory effort, normal air movement and clear to auscultation bilaterally Cardio regular rate, regular rhythm and peripheral pulses 2+ throughout GI soft to palpation, non-tender and non-distended Extremity normal capillary refill and no clubbing, cyanosis or edema General Extremity: no tenderness to palpation of joints or extremities Skin no rashes or lesions noted General Skin Exam: turgor normal Lesions: no lesions Rashes: no rashes Neuro CN's II-XII intact bilaterally Speech: speech normal Motor Exam: strength 5/5 throughout; Negative for general weakness Psych thought process normal, cooperative and affect normal Appearance: appropriate Weight / BMI Weight Weight: 59.87 kg Body Mass Index (BMI) 24.9 ABG / Lab / Microbiology Data 11/28/23 05:42 11/28/23 05:42 D/C Instructions Discharge Diet: No restrictions Call your doctor if your incision/area has: Sudden Increased Bleeding Call your doctor if you observe: Fever of 101 or Higher Please Follow Up With: Alvin Hickey MD When: Call [phone] for an appointment Meaningful Use Info Meaningful Use Meaningful Use Diagnoses (Choose all that apply): None applicable Ischemic Stroke Statin Dosing Therapy Reference: STATIN DOSE THERAPY REFERENCE: * Patients > 75 years receive moderate or high dose statin therapy. * Patients 75 years or YOUNGER should receive HIGH intensity statin dose unless contraindicated. You will be required to document reason for non-treatment if statin daily dose does not meet guidelines. HIGH DOSE STATIN THERAPY DAILY Atorvastatin > than or = to 40 mg Rosuvastatin > than or = to 20 mg Amlodipine + Atorvastatin > than or = to 2.5/40 mg Ezetimibe + Simvastatin 10/80 mg Simvastatin 80mg Discharge Plan Admission Admit Date/Time: 11/27/23 10:52 Primary Reason for Your Visit: Right partial nephrectomy Attending Provider: Alvin Hickey Primary Care Provider: Fabián Salazar Instructions Patient Instructions: Nephrectomy Dc, Nephrectomy Ch Dc Discharge Orders/Prescriptions Prescriptions: New oxycodone 5 mg tablet 5 mg PO Q6H PRN (Reason: pain) 7 Days Qty: 20 0RF docusate sodium [Colace] 100 mg capsule 100 mg PO BID Qty: 20 0RF Continued amlodipine [Norvasc] 5 mg tablet 10 mg PO DAILY ondansetron 4 mg tablet,disintegrating 4 mg PO Q8H PRN PRN (Reason: Nausea) Qty: 10 0RF BIOFORTA 1 tab PO DAILY mecobalamin (vitamin B12) 5,000 mcg tablet,chewable 5,000 mcg PO DAILY vitamin E acetate 100 unit capsule 180 unit PO DAILY cholecalciferol (vitamin D3) [Vitamin D3] 125 mcg (5,000 unit) tablet 125 mcg PO DAILY Referrals / Follow Up: Alvin Hickey MD [Med Staff - Active Staff] - Fabián Salazar MD [Primary Care Provider] - Disposition Discharge Orders: Discharge Patient (Routine); Ordered 11/29/23 Ordered By: Dr. Alvin Hickey
--- NOTE | 2023-11-29 11:41 | CASEMGMT ---
Noted DC order. RN CM into pt room, pt sitting up in bed in no distress. Pt states son staying with her for 6 weeks while she recovers. Pt denies questions or concerns at this time.
[2023-11-29 15:21] VITALS: BP 150/65; PULSE 76; RESP 18; TEMP 36.7; O2SAT 95
== END 2023-11-29 17:07 | disposition home or self-care (01) | DRG 688 ==
LOC: SDC 12:31 → MS3 12:31
PROVIDERS: Anesthesiology; Admitting Provider Urology; PCP Family Medicine; Referring Provider Urology; Visit Provider Urology
PROC: 0TB04ZX Excision of Right Kidney, Percutaneous Endoscopic Approach, Diagnostic (ICD-10-PCS; CPT 50543; principal; 2023-11-27 07:10)
DX: D30.01 Benign neoplasm of right kidney (principal); I10 Essential (primary) hypertension; Z79.899 Other long term (current) drug therapy
CPT/HCPCS: 36415; 71046; 80048; 81002; 85027; 85610; 85730; 86850; 86900; 86901; 86920; 86922; 88307; 93005; 94668; 97162; 97166; 97530; J7030; J7120; A4216; J2405

== ENCOUNTER → 2023-12-11 | Outpatient (CLI) | payer BC, SELFPAY ==
[2023-12-11 17:35] LABS: Absolute Neutrophil Count 7.9 X10^3/uL (2.0-7.7); Basophil# 0.06 X10^3/uL; Basophil% 0.6 % (0-1); Eosinophil# 0.08 X10^3/uL; Eosinophils% 0.8 % (0-5); Hematocrit 40.9 % (37-47); Hemoglobin 13.4 g/dL (12.0-15.0); Lymphocyte % 11.9 % (19-41); Mean Corp Hgb Conc 32.8 g/dL (32-36); Mean Corpuscular Hgb 30.3 pg (27.0-32.0); Mean Corpuscular Volume 92.5 fL (81-99); Mean Platelet Vol. 10.3 fl (6.2-12.0); Monocyte# 0.77 X10^3/uL; Monocyte% 7.6 % (0-10); NRBC Flagged by Analyzer 0 % (0-5); Neutrophil # 7.86 X10^3/uL (2.7-7.7); Neutrophil % 78.1 % (47-70); Platelet Count 561 K/mm3 (150-450); RBC Distribution Width SD 40.9 fl (35.1-43.9); Red Blood Count 4.42 M/mm3 (4.2-5.4); White Blood Count 10.1 K/mm3 (4.4-11.0)
[2023-12-11 17:54] LABS: ALB/GLOB Ratio 0.7 RATIO (0.9-2.4); AST(SGOT) 19 U/L (15-37); Alanine Aminotransfer ALT/SGPT 24 U/L (13-56); Albumin, Serum 3.3 g/dL (3.2-5.0); Alkaline Phosphatase 129 U/L (45-117); Anion Gap 8 (5-15); BUN 30 mg/dL (7-18); Chloride 102 mmol/L (98-107); Creatinine, Serum 0.73 mg/dL (0.55-1.02); EST Glomerular Filtration Rate 81 mL/min (>60); Est Glom Filt Rate - Afr Amer 98 mL/min (>60); Globulin 4.5 g/dL (2.2-4.2); Glucose 128 mg/dL (74-106); Potassium 4.2 mmol/L (3.5-5.1); Protein, Total 7.8 g/dL (6.4-8.2); Sodium Level 137 mmol/L (136-145)
== END | disposition home or self-care (01) ==
LOC: MFPLAB 16:23
PROVIDERS: PCP Family Medicine; Visit Provider Family Medicine
DX: I10 Essential (primary) hypertension (principal)
CPT/HCPCS: 36415; 80053; 85025

== ENCOUNTER → 2023-12-12 | Outpatient (CLI) | payer MEDICARE, BC, SELFPAY ==
[2023-12-12 13:40] LABS: Mucous, Urine 0 SEEN /hpf (<or=2+)
[2023-12-12 15:11] LABS: Color, Urine Yellow (Yellow); Glucose, Dipstick Normal (Normal); Ketone-Dipstick Negative (Negative); Leukocyte Esterase-Dipstick 25 /ul (Negative); Nitrite-Dipstick Negative (Negative); Occult Blood-Urine 50 /ul (Negative); Protein-Dipstick 15 mg/dl (Negative); Specific Gravity, Urine 1.015 (1.002-1.030); Urine Bilirubin Dipstick Negative (Negative); Urine Clarity Sl. Cloudy (Clear); Urine Urobilinogen Normal (Normal)
[2023-12-12 15:17] LABS: Bacteria RARE /hpf (None Seen); Red Blood Cells-Urine 0-5 SEEN /hpf (0-5); Squamous Epithelial Cells - UA 0-5 SEEN /hpf (5-10); Transitional Epithelial - Ur 0-5 SEEN /hpf (0-5); White Blood Cells 5-10 SEEN /hpf (0-5)
== END | disposition home or self-care (01) ==
LOC: MFPLAB 13:38
PROVIDERS: PCP Family Medicine; Visit Provider Family Medicine
DX: I10 Essential (primary) hypertension (principal)
CPT/HCPCS: 81001

== ENCOUNTER 2023-12-17 00:39 | Inpatient (IN) | payer BC, MEDICARE, SELFPAY ==
[2023-12-17] VITALS (22 sets, daily range): BP systolic 94–152; BP diastolic 27–62; PULSE 60–84; RESP 12–18; TEMP 36.3–36.9; O2SAT 93–100; BMI 25.0; BMI 24.3
--- NOTE | 2023-12-17 01:35 | CT_ITS ---
ACR Level 3 findings have been noted. An addendum which confirms receipt of the report will follow. EXAM: CT ABDOMEN AND PELVIS WITH INTRAVENOUS CONTRAST CLINICAL INDICATION: Recent kidney surgery TECHNIQUE: Helically acquired images were obtained of the abdomen and pelvis with intravenous contrast. This CT exam was performed using one or more of the following dose reduction techniques: automated exposure control, adjustment of the mA and/or kV according to patient size, and/or use of iterative reconstruction technique. CONTRAST: IV 75mL Isovue-370 RADIATION DOSE: CTDIvol = 12.16 mGy, DLP = 1115.52 mGy-cm COMPARISON: CT abdomen and pelvis 09/22/2023 FINDINGS: LOWER THORAX: Unremarkable. Lung bases are clear. No cardiomegaly. No significant pericardial effusion. ABDOMEN: LIVER: Unremarkable. Homogeneous. No focal mass. GALLBLADDER AND BILE DUCTS: Cholecystectomy. No intra- or extrahepatic biliary ductal dilation. PANCREAS: Unremarkable. No focal cystic or solid mass. SPLEEN: Unremarkable. Normal size without focal cystic or solid mass. ADRENALS: Unremarkable. No nodules. KIDNEYS AND URETERS: Surgical changes status post partial right nephrectomy. There is a rim-enhancing air and fluid collection in the location of the resection, measuring 3.4 cm. 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 No stomach or bowel distention. PELVIS: APPENDIX: No evidence of acute appendicitis. BLADDER: Unremarkable. REPRODUCTIVE: Unremarkable as visualized. No mass. ABDOMEN and PELVIS: INTRAPERITONEAL SPACE: Unremarkable. No ascites or other fluid collection. No free air. BONES/JOINTS: Unremarkable. No suspicious lytic or blastic abnormality. SOFT TISSUES: Unremarkable. No discrete abdominal or pelvic wall hernia. VASCULATURE: Moderate atherosclerotic calcifications of the abdominal aorta without dilation. LYMPH NODES: Unremarkable. No enlarged lymph nodes. CT/Abdomen/Pelvis W IV Cont ONLY IMPRESSION: Surgical changes status post partial right nephrectomy. There is a rim-enhancing air and fluid collection in the location of the resection, measuring 3.4 cm. This may indicate a postoperative abscess. Electronically Signed: David Marvin MD at 3:21 EDT ,
--- NOTE | 2023-12-17 01:46 | EDS_ITS ---
HPI History of Present Illness Chief Complaint: Nausea/Vomiting Narrative Narrative: Chief complaint and HPI: Nausea and vomiting. History taken by patient as well as operative report on 11/26. 83-year-old female status post laparoscopic robotic partial right kidney nephrectomy on 11/[address] Hickey presents for evaluation of nausea and vomiting. Patient had a large 4.5 cm mass that was removed. Was found to be noncancerous per her report. Patient states she has been recovering well from surgery. She states around 10 PM she started to develop nausea and vomiting. She endorses abdominal pain where her surgery was but states it is not any worse than it has been. She tried Zofran at home without improvement. She denies any fever, chills, URI symptoms, chest pain, shortness of breath, diarrhea, constipation, dysuria, hematuria. States she has not been taking any pain medicine. Review of systems: See HPI Medications: As listed on the chart Allergies: As listed on the chart PFSH: Per chart Vital signs: As listed on the chart. Reviewed. Physical exam: Gen: A&O x3, NAD Head: Normocephalic, atraumatic Eyes: No sclera icterus, conjunctiva clear ENT: Moist mucous membranes Neck: Trachea midline, No JVD CV: RRR, no murmurs, no peripheral edema Resp: Lungs CTA BL, no w/r/c GI: Abd soft, nondistended, mildly tender to palpation over her previous surgical incisions-healing well, no r/r/g : No CVA tenderness Musc: Full ROM, no deformity Skin: Warm, dry Neuro: Alert, oriented, grossly intact, sensation intact Psych: Cooperative, appropriate mood and affect [facility] Medical History Wears glasses Wears hearing aid Post-menopausal History of renal disease High cholesterol Easy bruising Dietary restriction Non-smoker Food poisoning Multiple thyroid nodules Essential hypertension Home Medications ?Medication ?Instructions ?Recorded ?Last Taken ?Type amlodipine 5 mg tablet (Norvasc) 10 mg PO DAILY 11/21/17 11/27/23 History ondansetron 4 mg disintegrating 4 mg PO Q8H PRN PRN Nausea #10 tabs 09/22/23 11/26/23 Rx tablet cholecalciferol (vitamin D3) 125 125 mcg PO DAILY 11/13/23 11/26/23 History mcg (5,000 unit) tablet (Vitamin D3) mecobalamin (vitamin B12) 5,000 5,000 mcg PO DAILY 11/13/23 11/26/23 History mcg chewable tablet vitamin E acetate 100 unit capsule 180 unit PO DAILY 11/13/23 11/26/23 History Allergy/AdvReac Type Severity Reaction Status Date / Time atorvastatin (From Lipitor) Allergy Other Verified 12/17/23 00:42 Beef Containing Products Allergy Other Verified 12/17/23 00:42 Pork/Porcine Containing Allergy other Verified 12/17/23 00:42 Products Family History Mother Heart disease CHF Hypertension Father Heart disease Hypertension Myocardial infarction Daughter Breast cancer Lyme disease Surgical History Status post biopsy of thyroid gland (~12/2017) Hx of wisdom tooth extraction Hx of bilateral cataract extraction Hx of cholecystectomy Social History Smoking Status: Never smoker second hand exposure: No alcohol intake: never substance use type: does not use caffeine: Yes what type of physical activity do you participate in: none frequency: does not exercise seatbelt use: always EXAM Physical Exam Const Vital Signs: 12/17/23 00:43 12/17/23 02:39 Temperature 97.8 F Temperature Source Oral Pulse Rate 80 81 Respiratory Rate 18 16 Blood Pressure 152/54 H 135/54 H Blood Pressure Mean 86 81 Pulse Ox 98 97 Oxygen Delivery Method Room Air Room Air MDM MDM MDM Narrative Medical decision making narrative: 83-year-old female status post laparoscopic robotic partial right kidney nephrectomy on 11/[address] Hickey presents for evaluation of nausea and vomiting. Differential diagnosis includes but is not limited to intra-abdominal abscess or infection, ileus, bowel obstruction, UTI, viral illness, electrolyte abnormality. Abdominal pain workup ordered including CT abdomen and pelvis. Zofran and NS bolus ordered. CBC shows leukocytosis of 17.4 patient's white count was normal on 12/10 on chart review. No anemia. CMP relatively unremarkable without KOJO. No transaminitis. Lipase unremarkable. Lactic acid unremarkable. UA pending at this time. CT abdomen pelvis shows a rim-enhancing area of fluid collection location of the resection, measuring 3.4 cm. May indicate a postoperative abscess. With patient's leukocytosis this is more in favor of abscess. Zosyn ordered for antibiotics. Urology was consulted and patient was discussed with Dr. Hickey. May be abscess versus postsurgical changes however agrees with admission. Patient was discussed with Dr. Costello who accepted. Patient was updated on all her results and the plan for admission. She confirmed understanding. Impression: 1. Postsurgical intra-abdominal abscess 2. Status post laparoscopic robotic partial right kidney nephrectomy on 11/26 Lab Data Labs: Laboratory Results - last 24 hr 12/17/23 12/17/23 01:20 01:54 WBC 17.4 H RBC 4.22 Hgb 13.0 Hct 39.0 MCV 92.4 MCH 30.8 MCHC 33.3 RDW Std Deviation 41.1 RDW Coeff of Sameer 12.2 Plt Count 439 MPV 10.4 Immature Gran % (Auto) 0.500 Neut % (Auto) 87.5 H Lymph % (Auto) 4.4 L [place] % (Auto) 6.9 Eos % (Auto) 0.5 Baso % (Auto) 0.2 Absolute Neuts (auto) 15.2 H Absolute Lymphs (auto) 0.76 L Nucleated RBC % 0 Sodium 140 Potassium 3.5 Chloride 106 Carbon Dioxide 28.0 Anion Gap 6 BUN 29 H Creatinine 0.69 Estim Creat Clear Calc 45.89 Est GFR (MDRD) Af Amer 106 Est GFR (MDRD) Non-Af 87 BUN/Creatinine Ratio 42.3 H Glucose 137 H Lactic Acid 0.8 Calcium 9.4 Total Bilirubin 0.30 AST 18 ALT 19 Alkaline Phosphatase 104 Total Protein 6.9 Albumin 3.2 Globulin 3.7 Albumin/Globulin Ratio 0.9 Lipase 48 Radiography Diagnostic Testing: Clinical Impression(s) from Imaging Studies Abdomen/Pelvis CT 12/17/23 01:35 IMPRESSION: Surgical changes status post partial right nephrectomy. There is a rim-enhancing air and fluid collection in the location of the resection, measuring 3.4 cm. This may indicate a postoperative abscess. Electronically Signed: David Marvin MD at 3:21 EDT , ADDENDUM: 12/17/23 0334 IMPRESSION: Surgical changes status post partial right nephrectomy. There is a rim-enhancing air and fluid collection in the location of the resection, measuring 3.4 cm. This may indicate a postoperative abscess. N.B. : Bill Hathaway DO, confirmed on 12/17/2023 03:27:47 (ET) that the healthcare facility has received the radiology report. Electronically Signed: David Marvin MD at 3:21 EDT , Discharge Plan Triage Chief Complaint: Nausea/Vomiting ED Provider: Bill Huerta Dx/Rx/DC Orders Prescriptions: No Action amlodipine [Norvasc] 5 mg tablet 10 mg PO DAILY ondansetron 4 mg tablet,disintegrating 4 mg PO Q8H PRN PRN (Reason: Nausea) Qty: 10 0RF mecobalamin (vitamin B12) 5,000 mcg tablet,chewable 5,000 mcg PO DAILY vitamin E acetate 100 unit capsule 180 unit PO DAILY cholecalciferol (vitamin D3) [Vitamin D3] 125 mcg (5,000 unit) tablet 125 mcg PO DAILY Primary Care Provider: Fabián Salazar Referrals: Fabián Salazar MD [Primary Care Provider] - Print Language: [place]
[2023-12-17 01:47] LABS: Absolute Lymphocyte Count 0.76 X10^3/uL (0.83-4.51); Absolute Neutrophil Count 15.2 X10^3/uL (2.0-7.7); Basophil# 0.04 X10^3/uL; Basophil% 0.2 % (0-1); Eosinophil# 0.09 X10^3/uL; Eosinophils% 0.5 % (0-5); Lymphocyte # 0.76 X10^3/ul (0.83-4.51); Lymphocyte % 4.4 % (19-41); Mean Corp Hgb Conc 33.3 g/dL (32-36); Mean Corpuscular Hgb 30.8 pg (27.0-32.0); Mean Corpuscular Volume 92.4 fL (81-99); Mean Platelet Vol. 10.4 fl (6.2-12.0); Monocyte% 6.9 % (0-10); NRBC Flagged by Analyzer 0 % (0-5); Neutrophil # 15.22 X10^3/uL (2.7-7.7); Neutrophil % 87.5 % (47-70); Platelet Count 439 K/mm3 (150-450); RBC Distribution Width CV 12.2 % (11.6-14.6); RBC Distribution Width SD 41.1 fl (35.1-43.9); Red Blood Count 4.22 M/mm3 (4.2-5.4); White Blood Count 17.4 K/mm3 (4.4-11.0)
[2023-12-17] MEDS: Ondansetron 4 MG/2 ML Vial IV (01:50)
[2023-12-17] MEDS: 0.9% Normal Saline (500mL Bag) 500 ML 999 ML IV (02:06)
[2023-12-17 02:11] LABS: ALB/GLOB Ratio 0.9 RATIO (0.9-2.4); AST(SGOT) 18 U/L (15-37); Alanine Aminotransfer ALT/SGPT 19 U/L (13-56); Albumin, Serum 3.2 g/dL (3.2-5.0); Alkaline Phosphatase 104 U/L (45-117); Anion Gap 6 (5-15); BUN 29 mg/dL (7-18); BUN/Creat Ratio 42.3 RATIO (10-20); Calcium,Total 9.4 mg/dL (8.5-10.1); Chloride 106 mmol/L (98-107); Creatinine, Serum 0.69 mg/dL (0.55-1.02); EST Glomerular Filtration Rate 87 mL/min (>60); Est Glom Filt Rate - Afr Amer 106 mL/min (>60); Estimated Creatinine Clearance 45.89 ml/min; Globulin 3.7 g/dL (2.2-4.2); Glucose 137 mg/dL (74-106); Lipase 48 U/L (13-75); Potassium 3.5 mmol/L (3.5-5.1); Protein, Total 6.9 g/dL (6.4-8.2); Sodium Level 140 mmol/L (136-145)
[2023-12-17 02:23] LABS: Lactic Acid 0.8 mmol/L (0.4-1.9)
[2023-12-17 03:35] LABS: Bacteria 0 SEEN /hpf (None Seen)
[2023-12-17 03:36] LABS: Color, Urine Yellow (Yellow); Glucose, Dipstick Normal (Normal); Ketone-Dipstick Negative (Negative); Leukocyte Esterase-Dipstick 25 /ul (Negative); Nitrite-Dipstick Negative (Negative); Occult Blood-Urine 10 /ul (Negative); Protein-Dipstick 15 mg/dl (Negative); Urine Bilirubin Dipstick Negative (Negative); Urine Clarity Clear (Clear); Urine Urobilinogen Normal (Normal)
[2023-12-17 03:53] LABS: Red Blood Cells-Urine 5-10 SEEN /hpf (0-5); Squamous Epithelial Cells - UA 0-5 SEEN /hpf (5-10); White Blood Cells 5-10 SEEN /hpf (0-5)
[2023-12-17 03:54] LABS: Hyaline Cast 0-5 SEEN /lpf (0-5); Mucous, Urine RARE /hpf (<or=2+)
[2023-12-17] MEDS: Piperacil/Tazobactam 3.375 GM in 0.9% Normal Saline (50mL MB+) 50 ML IV ×3 (03:54→21:13)
--- NOTE | 2023-12-17 04:02 | PCM.HP.STD ---
HPI - General General Date of Admission: 12/17/23 Date of Service: 12/17/23 Chief Complaint: Nausea and vomiting HPI Narrative FRANK LI, is a 83 F who presents to the emergency room with chief complaint of nausea and vomiting. Onset of symptoms began approximately 10:00 PM this evening, patient states she was seen by her surgeon earlier this afternoon and things were going well. 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 Patient states she was recovering well and following doctors orders but became suddenly nauseous this evening and started vomiting. She came to the emergency room to be evaluated. CT scan was obtained and found a suspected developing abscess at the surgical site and was noted to have an elevated white blood cell count of 17,000. She denies fevers or chills, chest pain shortness of breath but does have nausea and vomiting. Patient will be admitted and urologist Dr. Hickey consulted. [facility] Medical History Wears glasses Wears hearing aid Post-menopausal History of renal disease High cholesterol Easy bruising Dietary restriction Non-smoker Food poisoning Multiple thyroid nodules Essential hypertension Home Medications ?Medication ?Instructions ?Recorded ?Last Taken ?Type amlodipine 5 mg tablet (Norvasc) 10 mg PO DAILY 11/21/17 11/27/23 History ondansetron 4 mg disintegrating 4 mg PO Q8H PRN PRN Nausea #10 tabs 09/22/23 11/26/23 Rx tablet cholecalciferol (vitamin D3) 125 125 mcg PO DAILY 11/13/23 11/26/23 History mcg (5,000 unit) tablet (Vitamin D3) mecobalamin (vitamin B12) 5,000 5,000 mcg PO DAILY 11/13/23 11/26/23 History mcg chewable tablet vitamin E acetate 100 unit capsule 180 unit PO DAILY 11/13/23 11/26/23 History Allergy/AdvReac Type Severity Reaction Status Date / Time atorvastatin (From Lipitor) Allergy Other Verified 12/17/23 00:42 Beef Containing Products Allergy Other Verified 12/17/23 00:42 Pork/Porcine Containing Allergy other Verified 12/17/23 00:42 Products Family History Mother Heart disease CHF Hypertension Father Heart disease Hypertension Myocardial infarction Daughter Breast cancer Lyme disease Surgical History Status post biopsy of thyroid gland (~12/2017) Hx of wisdom tooth extraction Hx of bilateral cataract extraction Hx of cholecystectomy Social History Smoking Status: Never smoker second hand exposure: No alcohol intake: never substance use type: does not use caffeine: Yes what type of physical activity do you participate in: none frequency: does not exercise seatbelt use: always ROS Constitutional Constitutional: Denies chills or fever(s) Eyes Eyes: Denies blurry vision ENT HEENT: Denies abnormal hearing Cardiovascular Cardiovascular: Denies chest pain Respiratory/Chest Respiratory/Chest: Denies cough Gastrointestinal Gastrointestinal: Reports nausea and vomiting Genitourinary Genitourinary: Denies dysuria Musculoskeletal Musculoskeletal: Reports back pain Integumentary Integumentary: Reports dry skin Neurologic Neurologic: Denies abnormal gait Psychiatric Psychiatric: Denies anxiety Vital Signs Vital Signs Vital Signs: 12/17/23 00:43 12/17/23 02:39 12/17/23 03:55 Temperature 97.8 F 97.9 F Temperature Source Oral Pulse Rate 80 81 84 Respiratory Rate 18 16 16 Blood Pressure 152/54 H 135/54 H 126/50 H Blood Pressure Mean 86 81 75 Pulse Ox 98 97 93 Oxygen Delivery Method Room Air Room Air 12/17/23 04:00 Temperature Temperature Source Pulse Rate 84 Respiratory Rate 16 Blood Pressure 126/50 H Blood Pressure Mean 75 Pulse Ox 93 Oxygen Delivery Method Room Air Weight Weight: 132 lb 6.4 oz Body Mass Index (BMI) 25.0 Physical Exam Const oriented x3 General Appearance: cooperative and well developed HEENT normocephalic and head/scalp atraumatic Neck no lymphadenopathy Lymph Lymphatic: no lymphadenopathy noted Resp normal respiratory effort, normal air movement and clear to auscultation bilaterally Cardio regular rate, regular rhythm, S1 normal heart sound and S2 normal heart sound GI soft to palpation and non-distended Extremity normal capillary refill Skin General Skin Exam: no breakdown Neuro no focal motor deficits and no sensory deficits noted Results Lab / Micro Data 12/17/23 01:20 12/17/23 01:20 Labs: Laboratory Results - last 24 hr 12/17/23 01:20: WBC 17.4 H, RBC 4.22, Hgb 13.0, Hct 39.0, MCV 92.4, MCH 30.8, MCHC 33.3, RDW Std Deviation 41.1, RDW Coeff of Sameer 12.2, Plt Count 439, MPV 10.4, Immature Gran % (Auto) 0.500, Neut % (Auto) 87.5 H, Lymph % (Auto) 4.4 L, [place] % (Auto) 6.9, Eos % (Auto) 0.5, Baso % (Auto) 0.2, Absolute Neuts (auto) 15.2 H, Absolute Lymphs (auto) 0.76 L, Nucleated RBC % 0, Sodium 140, Potassium 3.5, Chloride 106, Carbon Dioxide 28.0, Anion Gap 6, BUN 29 H, Creatinine 0.69, Estim Creat Clear Calc 45.89, Est GFR (MDRD) Af Amer 106, Est GFR (MDRD) Non-Af 87, BUN/Creatinine Ratio 42.3 H, Glucose 137 H, Calcium 9.4, Total Bilirubin 0.30, AST 18, ALT 19, Alkaline Phosphatase 104, Total Protein 6.9, Albumin 3.2, Globulin 3.7, Albumin/Globulin Ratio 0.9, Lipase 48 12/17/23 01:54: Lactic Acid 0.8 12/17/23 03:29: Urine Color Yellow, Urine Clarity Clear, Urine pH 7.0, Ur Specific [place] 1.010, Urine Protein 15 H, Urine Glucose (UA) Normal, Urine Ketones Negative, Urine Occult Blood 10 H, Urine Nitrite Negative, Urine Bilirubin Negative, Urine Urobilinogen Normal, Ur Leukocyte Esterase 25 H, Urine RBC 5-10 SEEN, Urine WBC 5-10 SEEN, Ur Squamous Epith Cells 0-5 SEEN, Urine Bacteria 0 SEEN, Hyaline Casts 0-5 SEEN, Urine Mucus RARE Imaging Radiology Impression Abdomen/Pelvis CT 12/17/23 01:35 IMPRESSION: Surgical changes status post partial right nephrectomy. There is a rim-enhancing air and fluid collection in the location of the resection, measuring 3.4 cm. This may indicate a postoperative abscess. Electronically Signed: David Marvin MD at 3:21 EDT , ADDENDUM: 12/17/23 0334 IMPRESSION: Surgical changes status post partial right nephrectomy. There is a rim-enhancing air and fluid collection in the location of the resection, measuring 3.4 cm. This may indicate a postoperative abscess. N.B. : Bill Hathaway DO, confirmed on 12/17/2023 03:27:47 (ET) that the healthcare facility has received the radiology report. Electronically Signed: David Marvin MD at 3:21 EDT , Assessment & Plan Assessment/Plan (1) Abscess: (2) Essential hypertension: PLAN: Plan 1 abscess around right kidney and location of partial nephrectomy?admit patient to medical surgical floor, initiate IV treatment with vancomycin and Zosyn. Consult urologist Dr. Hickey. Due to symptoms of nausea will place patient on Zofran as needed and obtain repeat labs of CBC BMP in the a.m. 2. Hypertension?continue routine home medications 3. DVT prophylaxis?SCDs due to redcent renal surgery Charges/Coding Visit Charges Inpatient E&M: 84065 Init Hosp L2
[2023-12-17] MEDS: Vancomycin IV 1,000 MG/200 ML BAG 200 MG IV (05:00)
--- NOTE | 2023-12-17 05:32 | PCM.RX.CS ---
Consult Antibiotic Management Pharmacy has been consulted to manage selected antibiotic: Vancomycin Type of Intervention Type of Consult: New start Labs Labs: Sodium 140 mmol/L (136-145) 12/17/23 01:20 Potassium 3.5 mmol/L (3.5-5.1) 12/17/23 01:20 Chloride 106 mmol/L (98-107) 12/17/23 01:20 Carbon Dioxide 28.0 mmol/L (21.0-32.0) 12/17/23 01:20 Anion Gap 6 (5-15) 12/17/23 01:20 BUN 29 mg/dL (7-18) H 12/17/23 01:20 Creatinine 0.69 mg/dL (0.55-1.02) 12/17/23 01:20 Est GFR (MDRD) Af Amer 106 mL/min (>60) 12/17/23 01:20 Est GFR (MDRD) Non-Af 87 mL/min (>60) 12/17/23 01:20 BUN/Creatinine Ratio 42.3 RATIO (10-20) H 12/17/23 01:20 Glucose 137 mg/dL (74-106) H 12/17/23 01:20 Dosing Weight Weight used for dosin.3 kg Estimated Creatinine Clearance Estimated Creatinine Clearance: 46 Goal Trough Goal Trough: 10-15 mcg/mL Pharmacy Plan for Drug Dosing Pharmacy Plan for Drug Dosing: Pharmacy Service will continue to monitor and adjust dosing as required. Follow-Up Labs Follow-Up Labs: Trough: Vancomycin Date/Time Labs Ordered Labs to be done on [date and time ordered]: 12/19/23 @0437
[2023-12-17 06:50] LABS: Absolute Lymphocyte Count 0.75 X10^3/uL (0.83-4.51); Absolute Neutrophil Count 9.9 X10^3/uL (2.0-7.7); Basophil# 0.03 X10^3/uL; Basophil% 0.3 % (0-1); Eosinophil# 0.02 X10^3/uL; Eosinophils% 0.2 % (0-5); Hematocrit 36.1 % (37-47); Hemoglobin 11.6 g/dL (12.0-15.0); Lymphocyte # 0.75 X10^3/ul (0.83-4.51); Lymphocyte % 6.6 % (19-41); Mean Corp Hgb Conc 32.1 g/dL (32-36); Mean Corpuscular Hgb 30.2 pg (27.0-32.0); Mean Platelet Vol. 10.4 fl (6.2-12.0); Monocyte% 5.3 % (0-10); NRBC Flagged by Analyzer 0 % (0-5); Neutrophil # 9.88 X10^3/uL (2.7-7.7); Neutrophil % 87.2 % (47-70); Platelet Count 399 K/mm3 (150-450); RBC Distribution Width CV 12.1 % (11.6-14.6); RBC Distribution Width SD 41.9 fl (35.1-43.9); Red Blood Count 3.84 M/mm3 (4.2-5.4); White Blood Count 11.3 K/mm3 (4.4-11.0)
[2023-12-17 07:09] LABS: Anion Gap 4 (5-15); BUN 22 mg/dL (7-18); Calcium,Total 8.8 mg/dL (8.5-10.1); Chloride 106 mmol/L (98-107); Creatinine, Serum 0.65 mg/dL (0.55-1.02); EST Glomerular Filtration Rate 93 mL/min (>60); Est Glom Filt Rate - Afr Amer 113 mL/min (>60); Estimated Creatinine Clearance 45.27 ml/min; Glucose 160 mg/dL (74-106); Potassium 3.6 mmol/L (3.5-5.1); Sodium Level 138 mmol/L (136-145)
--- NOTE | 2023-12-17 07:26 | PCM.CONS.U ---
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 There is a little air inside the resection fluid collection so hard to tell on CAT scan it is really just postoperative or if this is a abscess sunkenness send her down to radiology they will not be able to put a drain in it is too small but I can have them aspirated and see if they can aspirate it and check the fluid for infection. [facility] Medical History Wears glasses Wears hearing aid Post-menopausal History of renal disease High cholesterol Easy bruising Dietary restriction Non-smoker Food poisoning Multiple thyroid nodules Essential hypertension Home Medications ?Medication ?Instructions ?Recorded ?Last Taken ?Type amlodipine 5 mg tablet (Norvasc) 10 mg PO DAILY 11/21/17 11/27/23 History ondansetron 4 mg disintegrating 4 mg PO Q8H PRN PRN Nausea #10 tabs 09/22/23 11/26/23 Rx tablet cholecalciferol (vitamin D3) 125 125 mcg PO DAILY 11/13/23 11/26/23 History mcg (5,000 unit) tablet (Vitamin D3) mecobalamin (vitamin B12) 5,000 5,000 mcg PO DAILY 11/13/23 11/26/23 History mcg chewable tablet vitamin E acetate 100 unit capsule 180 unit PO DAILY 11/13/23 11/26/23 History Allergy/AdvReac Type Severity Reaction Status Date / Time atorvastatin (From Lipitor) Allergy Other Verified 12/17/23 00:42 Beef Containing Products Allergy Other Verified 12/17/23 00:42 Pork/Porcine Containing Allergy other Verified 12/17/23 00:42 Products Family History Mother Heart disease CHF Hypertension Father Heart disease Hypertension Myocardial infarction Daughter Breast cancer Lyme disease Surgical History Status post biopsy of thyroid gland (~12/2017) Hx of wisdom tooth extraction Hx of bilateral cataract extraction Hx of cholecystectomy Social History Smoking Status: Never smoker second hand exposure: No alcohol intake: never substance use type: does not use caffeine: Yes what type of physical activity do you participate in: none frequency: does not exercise seatbelt use: always Lab / Micro Data 12/17/23 06:01 12/17/23 06:01 Labs: Laboratory Results - last 24 hr 12/17/23 01:20: WBC 17.4 H, RBC 4.22, Hgb 13.0, Hct 39.0, MCV 92.4, MCH 30.8, MCHC 33.3, RDW Std Deviation 41.1, RDW Coeff of Sameer 12.2, Plt Count 439, MPV 10.4, Immature Gran % (Auto) 0.500, Neut % (Auto) 87.5 H, Lymph % (Auto) 4.4 L, [place] % (Auto) 6.9, Eos % (Auto) 0.5, Baso % (Auto) 0.2, Absolute Neuts (auto) 15.2 H, Absolute Lymphs (auto) 0.76 L, Nucleated RBC % 0, Sodium 140, Potassium 3.5, Chloride 106, Carbon Dioxide 28.0, Anion Gap 6, BUN 29 H, Creatinine 0.69, Estim Creat Clear Calc 45.89, Est GFR (MDRD) Af Amer 106, Est GFR (MDRD) Non-Af 87, BUN/Creatinine Ratio 42.3 H, Glucose 137 H, Calcium 9.4, Total Bilirubin 0.30, AST 18, ALT 19, Alkaline Phosphatase 104, Total Protein 6.9, Albumin 3.2, Globulin 3.7, Albumin/Globulin Ratio 0.9, Lipase 48 12/17/23 01:54: Lactic Acid 0.8 12/17/23 03:29: Urine Color Yellow, Urine Clarity Clear, Urine pH 7.0, Ur Specific [place] 1.010, Urine Protein 15 H, Urine Glucose (UA) Normal, Urine Ketones Negative, Urine Occult Blood 10 H, Urine Nitrite Negative, Urine Bilirubin Negative, Urine Urobilinogen Normal, Ur Leukocyte Esterase 25 H, Urine RBC 5-10 SEEN, Urine WBC 5-10 SEEN, Ur Squamous Epith Cells 0-5 SEEN, Urine Bacteria 0 SEEN, Hyaline Casts 0-5 SEEN, Urine Mucus RARE 12/17/23 06:01: WBC 11.3 H, RBC 3.84 L, Hgb 11.6 L, Hct 36.1 L, MCV 94.0, MCH 30.2, MCHC 32.1, RDW Std Deviation 41.9, RDW Coeff of Sameer 12.1, Plt Count 399, MPV 10.4, Immature Gran % (Auto) 0.400, Neut % (Auto) 87.2 H, Lymph % (Auto) 6.6 L, [place] % (Auto) 5.3, Eos % (Auto) 0.2, Baso % (Auto) 0.3, Absolute Neuts (auto) 9.9 H, Absolute Lymphs (auto) 0.75 L, Nucleated RBC % 0, Sodium 138, Potassium 3.6, Chloride 106, Carbon Dioxide 28.0, Anion Gap 4 L, BUN 22 H, Creatinine 0.65, Estim Creat Clear Calc 45.27, Est GFR (MDRD) Af Amer 113, Est GFR (MDRD) Non-Af 93, BUN/Creatinine Ratio 34.0 H, Glucose 160 H, Calcium 8.8 Imaging Radiology Impression Abdomen/Pelvis CT 12/17/23 01:35 IMPRESSION: Surgical changes status post partial right nephrectomy. There is a rim-enhancing air and fluid collection in the location of the resection, measuring 3.4 cm. This may indicate a postoperative abscess. Electronically Signed: David Marvin MD at 3:21 EDT , ADDENDUM: 12/17/23 [id number] IMPRESSION: Surgical changes status post partial right nephrectomy. There is a rim-enhancing air and fluid collection in the location of the resection, measuring 3.4 cm. This may indicate a postoperative abscess. N.B. : Bill Hathaway DO, confirmed on 12/17/2023 03:27:47 (ET) that the healthcare facility has received the radiology report. Electronically Signed: David Marvin MD at 3:21 EDT ,
[2023-12-17] MEDS: 0.9% Saline Lock 10 ML Syringe IV ×3 (08:00→14:06)
--- NOTE | 2023-12-17 08:26 | PCM.PN.HOSP ---
Reason for Visit Reason for Visit: Diagnoses Essential (primary) hypertension (12/17/23) Cutaneous abscess, unspecified (12/17/23) Subjective Subjective Patient is an 83-year-old lady who underwent laparoscopic robotic assisted right partial nephrectomy by Dr Hickey on 11/27/2023 who presented to the emergency department with intractable nausea vomiting. Imaging studies obtained did show Surgical changes status post partial right nephrectomy. There is a rim-enhancing air and fluid collection in the location of the resection, measuring 3.4 cm. This may indicate a postoperative abscess. Admitted to regular nursing floor with consultation placed to Dr Hickey Objective Data Objective Data Vital Signs: Vital Signs Temp Pulse Resp BP Pulse Ox O2 Del Method 97.3 F L 66 14 148/48 H 100 Room Air 12/17/23 08:18 12/17/23 08:18 12/17/23 08:18 12/17/23 08:18 12/17/23 08:18 12/17/23 08:18 Oxygen Delivery Method Room Air Weight: 58.3 kg Body Mass Index (BMI) 24.3 Intake & Output: Intake and Output for Last 24 Hours 12/15/23 12/16/23 12/17/23 23:59 23:59 23:59 Intake Total 750 / 750 Output Total 0 / 0 Balance 750 / 750 Lab / Micro Data 12/17/23 06:01 12/17/23 06:01 Labs: Laboratory Results - last 24 hr 12/17/23 01:20: WBC 17.4 H, RBC 4.22, Hgb 13.0, Hct 39.0, MCV 92.4, MCH 30.8, MCHC 33.3, RDW Std Deviation 41.1, RDW Coeff of Sameer 12.2, Plt Count 439, MPV 10.4, Immature Gran % (Auto) 0.500, Neut % (Auto) 87.5 H, Lymph % (Auto) 4.4 L, [place] % (Auto) 6.9, Eos % (Auto) 0.5, Baso % (Auto) 0.2, Absolute Neuts (auto) 15.2 H, Absolute Lymphs (auto) 0.76 L, Nucleated RBC % 0, Sodium 140, Potassium 3.5, Chloride 106, Carbon Dioxide 28.0, Anion Gap 6, BUN 29 H, Creatinine 0.69, Estim Creat Clear Calc 45.89, Est GFR (MDRD) Af Amer 106, Est GFR (MDRD) Non-Af 87, BUN/Creatinine Ratio 42.3 H, Glucose 137 H, Calcium 9.4, Total Bilirubin 0.30, AST 18, ALT 19, Alkaline Phosphatase 104, Total Protein 6.9, Albumin 3.2, Globulin 3.7, Albumin/Globulin Ratio 0.9, Lipase 48 12/17/23 01:54: Lactic Acid 0.8 12/17/23 03:29: Urine Color Yellow, Urine Clarity Clear, Urine pH 7.0, Ur Specific [place] 1.010, Urine Protein 15 H, Urine Glucose (UA) Normal, Urine Ketones Negative, Urine Occult Blood 10 H, Urine Nitrite Negative, Urine Bilirubin Negative, Urine Urobilinogen Normal, Ur Leukocyte Esterase 25 H, Urine RBC 5-10 SEEN, Urine WBC 5-10 SEEN, Ur Squamous Epith Cells 0-5 SEEN, Urine Bacteria 0 SEEN, Hyaline Casts 0-5 SEEN, Urine Mucus RARE 12/17/23 06:01: WBC 11.3 H, RBC 3.84 L, Hgb 11.6 L, Hct 36.1 L, MCV 94.0, MCH 30.2, MCHC 32.1, RDW Std Deviation 41.9, RDW Coeff of Sameer 12.1, Plt Count 399, MPV 10.4, Immature Gran % (Auto) 0.400, Neut % (Auto) 87.2 H, Lymph % (Auto) 6.6 L, [place] % (Auto) 5.3, Eos % (Auto) 0.2, Baso % (Auto) 0.3, Absolute Neuts (auto) 9.9 H, Absolute Lymphs (auto) 0.75 L, Nucleated RBC % 0, Sodium 138, Potassium 3.6, Chloride 106, Carbon Dioxide 28.0, Anion Gap 4 L, BUN 22 H, Creatinine 0.65, Estim Creat Clear Calc 45.27, Est GFR (MDRD) Af Amer 113, Est GFR (MDRD) Non-Af 93, BUN/Creatinine Ratio 34.0 H, Glucose 160 H, Calcium 8.8 Radiography Diagnostic Testing: Radiology Impression Abdomen/Pelvis CT 12/17/23 01:35 IMPRESSION: Surgical changes status post partial right nephrectomy. There is a rim-enhancing air and fluid collection in the location of the resection, measuring 3.4 cm. This may indicate a postoperative abscess. Electronically Signed: David Marvin MD at 3:21 EDT Reading Location ID and State: [facility] / [place] Tel , Service support , ADDENDUM: 12/17/23 0334 IMPRESSION: Surgical changes status post partial right nephrectomy. There is a rim-enhancing air and fluid collection in the location of the resection, measuring 3.4 cm. This may indicate a postoperative abscess. N.B. : Bill Hathaway DO, confirmed on 12/17/2023 03:27:47 (ET) that the healthcare facility has received the radiology report. Electronically Signed: David Marvin MD at 3:21 EDT , Physical Exam Narrative GENERAL: cooperative HEENT: Atraumatic; normocephalic EYES; Anicteric, Normal Conjunctiva NECK; supple, normal thyroid, RESPIRATORY: Diminished to auscultation CARDIOVASCULAR: Regular S1 S2, GI: soft, normoactive bowel sounds, : No Renal angle tenderness; EXTREMITIES: No edema, no clubbing, MUSCULOSKELETAL: no muscle wasting NEURO: Awake; no lateralizing signs. SKIN: No Rash PSYCH; Flat affect Assessment & Plan Assessment/Plan (1) Abscess: (2) Essential hypertension: PLAN: Plan Patient is an 83-year-old lady who underwent laparoscopic robotic assisted right partial nephrectomy by Dr Hickey on 11/27/2023 who presented to the emergency department with intractable nausea vomiting. Imaging studies obtained did show Surgical changes status post partial right nephrectomy. There is a rim-enhancing air and fluid collection in the location of the resection, measuring 3.4 cm. This may indicate a postoperative abscess. Admitted to regular nursing floor with consultation placed to Dr Hickey 1. Right perinephric abscess ? Postop complication following recent right partial nephrectomy by Dr Hickey on 11/27/2023. Patient was started on broad-spectrum antibiotic therapy with vancomycin and Zosyn cultures sent and consultation placed to Dr Hickey. Patient underwent 2. Hypertension ? Blood pressure controlled, home medications continued with dose adjustment as needed 3.DVT prophylaxis ? On enoxaparin Advance planning; did discuss with the patient and family regarding advanced directives as well as CODE STATUS. Did explain the various scenarios involved ( FULL CODE, DNR CCA, DNR CCA with no intubation, and DNR CC and what each meant) patient elected remain full code with CPR and intubation if needed. Order was placed. Time spent on discussion 18 minutes. Charges/Coding Procedures Hospitalists Procedures: 45734 Advncd Care Plan 30 Min
[2023-12-17 08:32] LABS: Prothrombin Time (Protime)PT. 12.9 SECONDS (11.7-14.9)
[2023-12-17 08:33] LABS: Partial Thromboplast Time 27.4 Seconds (24.1-36.2)
[2023-12-17] MEDS: Midazolam 2 MG/2 ML Syringe IV (08:35)
[2023-12-17] MEDS: fentaNYL 100 MCG/2 ML Ampul IV (08:37)
[2023-12-17] MEDS: Lidocaine 2% (20 ml mdv) 20 ML Vial INFILT (08:50)
--- NOTE | 2023-12-17 08:56 | CASEMGMT ---
Social Work- Pt has a directives card from [employer] on file naming Lev, son and Ana dtr, as agents. JORGE Howard
--- NOTE | 2023-12-17 09:22 | PCM.OP.PRO ---
Procedure Report Date of Procedure: 12/17/23 Assessment & Plan Assessment/Plan (1) Abscess: PLAN: PROCEDURE: CT GUIDED RIGHT PERCUTANEOUS renal fluid collection drainage ORDERING PROVIDER: Dr. Hickey INDICATION: Female, 83 years old. Fluid collection, possible abscess, status post right partial nephrectomy 3 weeks ago. PROVIDER: MADELAINE Clay CONSENT: Written informed consent was obtained having explained the risks, benefits and alternatives in detail with the patient. The specific risk of hemorrhage requiring further treatment or intervention was detailed and accepted. Informed consent was obtained. Laboratory review and clinical assessment was performed. PRE-PROCEDURE SEDATION ASSESSMENT: Current history and physical dictated by referring provider and reviewed. No clinical changes since date of exam. Patient has a Mallampati Score of Class 1 and ASA Class of 3. PROCEDURAL SEDATION PROTOCOL: The Drugs used were: 1 mg Versed, IV, and 50 mcg Fentanyl, IV. The sedation time was: 34 minutes, starting at 8:35 AM and terminated at 9:09 AM. The procedural sedation protocol was independently monitored by the department nurse. RADIATION DOSAGE (If Supplied By Facility): CTDIvol = 12.67 mGy, DLP = 517.65 mGycm Individualized dose optimization techniques were used for this CT. TECHNIQUE The patient was placed on the CT table in the prone position. Multiple axial images were obtained from the lung base through the caudal extent of the kidneys. An appropriate entry site to access the possible abscess was identified and a leon made on the skin. The skin overlying the right posterior flank was prepped with chlorhexidine and draped in sterile fashion. 2% lidocaine was administered subcutaneously for local anesthesia. Using CT guidance, an 18-gauge Chiba access needle was advanced to the center of the fluid collection, medial of the renal cortex. 9 mL of cloudy light remi fluid was able to be easily aspirated. No more fluid was able to be withdrawn, despite repositioning of the needle and verification with CT imaging. The needle was withdrawn. Hemostasis was achieved with manual compression and a sterile dressing was applied. The patient tolerated the procedure well without immediate complications. The patient returned to the holding bay in stable condition for nursing monitoring, per protocol. IMPRESSION: Successful CT guided percutaneous drainage of right renal fluid collection. Pathology results are pending. Procedural Sedation protocol utilized with independent monitoring by the department nurse. Procedures Radiology Radiology CT Procedures: 48030 Image guided catheter drainage
[2023-12-17] MEDS: amLODIPine 10 MG Tablet PO (10:43)
[2023-12-17] MEDS: Cholecalciferol (Vit D3) 125 MCG CAPSULE (5,000 UNITS) PO (10:44)
--- NOTE | 2023-12-17 12:55 | CHAPLAIN ---
Type of Pastoral Visit _x__ Initial Visit ___ Follow-up Visit ___ On-call Visit ___ General Patient Visit ___ Spiritual Assessment ___ Family Conference ___ Bereavement ___ Rapid Response ___ Code Blue ___ Other (describe below) Pastoral Care Referral From _x__ Patient ___ Family ___ Nurse ___ Physician ___ Hand Cutter Apprentice ___ Erp Manager ___ Other (describe below) Sacrament/Intervention _x__ Active listening ___ Anointing ___ Muslim ___ Bereavement ___ Communion _x__ Agnes exploration ___ _x__ Life review _x__ Prayer ___ Reconciliation ___ Sacrament of Sick _x__ Supportive presence ___ Wedding ___ Other (describe below) Pastoral Comments patient is very welcoming and talkative about her situation and gives some life review; pt had a recent surgery; pt reports feeling so very blessed with her results and the great care of this hospital; pt speaks of her disappointment that she is not out helping others because I know so many with health issues right now; pt was during and speaks of the country's woes starting then and continuing on through today; pt is concerned about the moral and spiritual state of the nation and expresses herself on the topic of practical agnes/theology; Pt has supported many good causes and shows her compassion in her speech; pt is an active member of a mu-ism and 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
--- NOTE | 2023-12-17 14:26 | CASEMGMT ---
STEVEN SALEH Readmission Note Previous Admission:11/27/23-11/29/23 Diagnosis: lap robotic partial nephrectomy DC Disposition: Home with family support Current Admission: Admitted 12/17/23 Current Diagnosis: pararenal abscess R side Pt dc'd from index admissionon pain med and stool softener. STEVEN SALEH into pt room, pt states she had followed up with her PCP last Saturday and then urology on day before admission. Pt states she had been doing well and then just started with nausea and vomiting. Pt reports her son is staying with her until the end of December to assist her. She reports being indep at home. Pt reports her mass was noncancerous. Pt WBC's increased and urology was consulted. Pt had a CT guided drainage of abscess this date. Pt does not anticipate any homegoing needs at this time. STEVEN SALEH to follow. DC Plan: Home pending course of hospitalization.
[2023-12-18 03:00] VITALS: BP 137/53; PULSE 61; RESP 17; TEMP 36.7; O2SAT 95
[2023-12-18] MEDS: Vancomycin HCl 750 MG in 0.9% Normal Saline (250mL Bag) 250 ML 250 MG IV (04:25)
[2023-12-18] MEDS: Piperacil/Tazobactam 3.375 GM in 0.9% Normal Saline (50mL MB+) 50 ML IV (05:46)
--- NOTE | 2023-12-18 07:56 | PN.HOSP_ITS ---
Reason for Visit Reason for Visit: Diagnoses Essential (primary) hypertension (12/17/23) Cutaneous abscess, unspecified (12/17/23) Subjective Subjective Patient underwent successful CT guided percutaneous drainage of right renal fluid collection. Pathology results are pending. Objective Data Objective Data Vital Signs: Vital Signs Temp Pulse Resp BP Pulse Ox O2 Del Method 98.1 F 61 17 137/53 H 95 Room Air 12/18/23 03:00 12/18/23 03:00 12/18/23 03:00 12/18/23 03:00 12/18/23 03:00 12/18/23 03:00 Oxygen Delivery Method Room Air Weight: 58.3 kg Body Mass Index (BMI) 24.3 Intake & Output: Intake and Output for Last 24 Hours 12/16/23 12/17/23 12/18/23 23:59 23:59 23:59 Intake Total 800 / 960 535 / 535 Output Total 0 / 0 Balance 800 / 960 535 / 535 Lab / Micro Data 12/17/23 06:01 12/17/23 06:01 Labs: Laboratory Results - last 24 hr 12/17/23 01:20: PT 12.9, INR 1.0, APTT 27.4 Physical Exam Narrative GENERAL: cooperative HEENT: Atraumatic; normocephalic EYES; Anicteric, Normal Conjunctiva NECK; supple, normal thyroid, RESPIRATORY: Diminished to auscultation CARDIOVASCULAR: Regular S1 S2, GI: soft, normoactive bowel sounds, : No Renal angle tenderness; EXTREMITIES: No edema, no clubbing, MUSCULOSKELETAL: no muscle wasting NEURO: Awake; no lateralizing signs. SKIN: No Rash PSYCH; Flat affect Assessment & Plan Assessment/Plan (1) Abscess: (2) Essential hypertension: PLAN: Plan Patient is an 83-year-old lady who underwent laparoscopic robotic assisted right partial nephrectomy by Dr Hickey on 11/27/2023 who presented to the emergency department with intractable nausea vomiting. Imaging studies obtained did show Surgical changes status post partial right nephrectomy. There is a rim- enhancing air and fluid collection in the location of the resection, measuring 3.4 cm. This may indicate a postoperative abscess. Admitted to regular nursing floor with consultation placed to Dr Hickey 1. Right perinephric abscess ? Postop complication following recent right partial nephrectomy by Dr Hickey on 11/27/2023. Patient was started on broad-spectrum antibiotic therapy with vancomycin and Zosyn cultures sent and consultation placed to Dr Hickey. ? 12/18/2023;Patient underwent successful CT guided percutaneous drainage of right renal fluid collection. Pathology results are pending 2. Hypertension ? Blood pressure controlled, home medications continued with dose adjustment as needed 3.DVT prophylaxis ? On enoxaparin Time spent in the patient's overall evaluation,decision-making process, review of diagnostic data, adjustment of management, discussion with other providers, nursing nursing and ancillary staff involved in patient's care documentation, 38 Minutes Charges/Coding Visit Charges Inpatient E&M: 03736 Subs Hosp L2
[2023-12-18 08:12] VITALS: O2SAT 95
[2023-12-18 09:54] VITALS: BP 122/47; PULSE 62; RESP 18; TEMP 36.6; O2SAT 98
[2023-12-18] MEDS: amLODIPine 10 MG Tablet PO (09:57)
[2023-12-18] MEDS: Cholecalciferol (Vit D3) 125 MCG CAPSULE (5,000 UNITS) PO (09:57)
--- NOTE | 2023-12-18 12:36 | PCM.CONS.B ---
Consult Date of Consult: 12/18/23 Reason for Consult Patient admitted for possible renal abscess after partial nephrectomy we did a CT-guided drainage of this with a needle aspiration to came back yellow clear fluid cultures are pending but it certainly did not look like ricarda pus talking to the radiologist. Very likely this is just a postop seroma. I think she should be will go home with some antibiotics and I will follow-up on the culture results. I will call and talk to the hospitalist and see if they are comfortable with discharging the patient.
--- NOTE | 2023-12-18 12:39 | DS.PCM_ITS ---
Providers Date of Admission: 12/17/23 Date of Discharge: 12/18/23 Primary Care Physician: Dr. Fabián Salazar MD Consultations 12/17/23 04:38 Consult: Urology Routine Consulting Provider: Alvin Hickey Reason for Consult: pararenal abscess EMERGENT Consult: Yes MD Notified: Yes Date Notified: 12/17/23 Time Notified: 04:10 Method of Notification: ED Physician Initiated Reason For Visit: PARARENAL ABSCESS RIGHT SIDE Diagnosis Discharge Diagnosis (1) Abscess: Status: Acute Code(s): L02.91 - Cutaneous abscess, unspecified (2) Essential hypertension: Status: Chronic Code(s): I10 - Essential (primary) hypertension Plan Patient is an 83-year-old lady who underwent laparoscopic robotic assisted right partial nephrectomy by Dr Hickey on 11/27/2023 who presented to the emergency department with intractable nausea vomiting. Imaging studies obtained did show Surgical changes status post partial right nephrectomy. There is a rim- enhancing air and fluid collection in the location of the resection, measuring 3.4 cm. This may indicate a postoperative abscess. Admitted to regular nursing floor with consultation placed to Dr Hickey 1. Right perinephric abscess ? Postop complication following recent right partial nephrectomy by Dr Hickey on 11/27/2023. Patient was started on broad-spectrum antibiotic therapy with vancomycin and Zosyn cultures sent and consultation placed to Dr Hickey. ? 12/18/2023;Patient underwent successful CT guided percutaneous drainage of right renal fluid collection. Pathology results are pending. Case was discussed with Dr Hickey with urology who felt that patient's fluid was not consistent with abscess by possibly a seroma. He recommended for patient to be discharged home with p.o. antibiotics and you follow-up on the results 2. Hypertension ? Blood pressure controlled, home medications continued with dose adjustment as needed 3.DVT prophylaxis ? On enoxaparin Time spent in the patient's overall evaluation,decision-making process, review of diagnostic data, adjustment of management, discussion with other providers, nursing nursing and ancillary staff involved in patient's care documentation, 38 Minutes Medications at Discharge Home Medications amlodipine 5 mg tablet (Norvasc) 10 mg PO DAILY 11/21/17 ondansetron 4 mg disintegrating tablet 4 mg PO Q8H PRN PRN Nausea #10 tabs 09/22/23 cholecalciferol (vitamin D3) 125 mcg (5,000 unit) tablet (Vitamin D3) 125 mcg PO DAILY 11/13/23 mecobalamin (vitamin B12) 5,000 mcg chewable tablet 5,000 mcg PO DAILY 11/13/23 vitamin E acetate 100 unit capsule 180 unit PO DAILY 11/13/23 ciprofloxacin HCl 500 mg tablet 500 mg PO BID #20 tabs 12/18/23 Physical Exam Narrative GENERAL: cooperative HEENT: Atraumatic; normocephalic EYES; Anicteric, Normal Conjunctiva NECK; supple, normal thyroid, RESPIRATORY: Diminished to auscultation CARDIOVASCULAR: Regular S1 S2, GI: soft, normoactive bowel sounds, : No Renal angle tenderness; EXTREMITIES: No edema, no clubbing, MUSCULOSKELETAL: no muscle wasting NEURO: Awake; no lateralizing signs. SKIN: No Rash PSYCH; Flat affect Weight / BMI Weight Weight: 58.3 kg Body Mass Index (BMI) 24.3 ABG / Lab / Microbiology Data 12/17/23 06:01 12/17/23 06:01 Microbiology: Microbiology 12/17/23 09:32 Aspirate - Other Wound Culture - Preliminary No growth-Final to follow D/C Instructions Discharge Diet: No restrictions Discharge Activity: Return to Normal Activity Call your doctor if you observe: Fever of 101 or Higher, Shortness of breath, Fainting spells and Chest pain Meaningful Use Info Meaningful Use Meaningful Use Diagnoses (Choose all that apply): None applicable Ischemic Stroke Statin Dosing Therapy Reference: STATIN DOSE THERAPY REFERENCE: * Patients > 75 years receive moderate or high dose statin therapy. * Patients 75 years or YOUNGER should receive HIGH intensity statin dose unless contraindicated. You will be required to document reason for non-treatment if statin daily dose does not meet guidelines. HIGH DOSE STATIN THERAPY DAILY Atorvastatin > than or = to 40 mg Rosuvastatin > than or = to 20 mg Amlodipine + Atorvastatin > than or = to 2.5/40 mg Ezetimibe + Simvastatin 10/80 mg Simvastatin 80mg Discharge Plan Admission Admit Date/Time: 12/17/23 04:08 Attending Provider: Zhou Salomon Primary Care Provider: Fabián Salazar Consulting Providers: Alvin Hickey; Stuart Cunningham Discharge Orders/Prescriptions Prescriptions: New ciprofloxacin HCl 500 mg tablet 500 mg PO BID Qty: 20 0RF Continued amlodipine [Norvasc] 5 mg tablet 10 mg PO DAILY ondansetron 4 mg tablet,disintegrating 4 mg PO Q8H PRN PRN (Reason: Nausea) Qty: 10 0RF mecobalamin (vitamin B12) 5,000 mcg tablet,chewable 5,000 mcg PO DAILY vitamin E acetate 100 unit capsule 180 unit PO DAILY cholecalciferol (vitamin D3) [Vitamin D3] 125 mcg (5,000 unit) tablet 125 mcg PO DAILY Referrals / Follow Up: Alvin Hickey MD [Med Staff - Active Staff] - Within 1 Week Fabián Salazar MD [Primary Care Provider] - Within 1 Week Disposition Disposition (needs filled in before D/C Order can be placed): Home, Self Care Charges/Coding Visit Charges Inpatient E&M: 15931 Disch Hosp >30min
--- NOTE | 2023-12-18 14:08 | CASEMGMT ---
STEVEN SALEH NOTE: Discharge order is in. RN CM to room. Pt sitting up in chair. Introduced self and role. Pt denies having any concerns w/discharging home and voices great appreciation of the care she has received while @ [facility]. Rx for Cipro has been sent to [facility] retail pharmacy. Pt wishes to have this delivered to her room. Call placed to the pharmacy and notified. Emma MACEDO RN CM
[2023-12-18 14:09] VITALS: BP 122/46; PULSE 63; RESP 18; TEMP 36.7; O2SAT 98
== END 2023-12-18 18:12 | disposition home or self-care (01) | DRG 862 ==
LOC: ED 03:43 → MS3 04:18
PROVIDERS: Nurse Practitioner Acute Care; Admitting Provider Family Medicine; Emergency Provider Surgery; PCP Family Medicine; Visit Provider Internal Medicine
DX: K68.11 Postprocedural retroperitoneal abscess (principal); N15.1 Renal and perinephric abscess; I10 Essential (primary) hypertension; Z79.899 Other long term (current) drug therapy
CPT/HCPCS: 36415; 74177; 77012; 80048; 80053; 81001; 83605; 83690; 85025; 85610; 85730; 87070; 87075; 87205; 97802; 99156; 99157; 99285; J7040; J7050; Q9967; A4216; J2405

== ENCOUNTER → 2024-06-10 | Outpatient (CLI) | payer BC, SELFPAY ==
[2024-06-10 16:32] LABS: Bacteria 0 SEEN /hpf (None Seen); Mucous, Urine 0 SEEN /hpf (<or=2+)
[2024-06-10 17:37] LABS: Color, Urine Yellow (Yellow); Glucose, Dipstick Normal (Normal); Ketone-Dipstick Negative (Negative); Leukocyte Esterase-Dipstick 500 /ul (Negative); Nitrite-Dipstick Negative (Negative); Occult Blood-Urine 10 /ul (Negative); Protein-Dipstick Negative (Negative); Urine Bilirubin Dipstick Negative (Negative); Urine Clarity Clear (Clear); Urine Urobilinogen Normal (Normal); Urine pH 6.5 (5.0 - 8.0)
[2024-06-10 17:53] LABS: Absolute Lymphocyte Count 1.45 X10^3/uL (0.83-4.51); Absolute Neutrophil Count 6.1 X10^3/uL (2.0-7.7); Basophil# 0.05 X10^3/uL; Basophil% 0.6 % (0-1); Eosinophil# 0.06 X10^3/uL; Eosinophils% 0.7 % (0-5); Hematocrit 45.1 % (37-47); Hemoglobin 15.2 g/dL (12.0-15.0); Lymphocyte # 1.45 X10^3/ul (0.83-4.51); Lymphocyte % 17.1 % (19-41); Mean Corp Hgb Conc 33.7 g/dL (32-36); Mean Corpuscular Hgb 31.3 pg (27.0-32.0); Mean Corpuscular Volume 92.8 fL (81-99); Mean Platelet Vol. 11.4 fl (6.2-12.0); Monocyte# 0.81 X10^3/uL; Monocyte% 9.6 % (0-10); NRBC Flagged by Analyzer 0 % (0-5); Neutrophil # 6.09 X10^3/uL (2.7-7.7); Neutrophil % 71.8 % (47-70); Platelet Count 312 K/mm3 (150-450); RBC Distribution Width CV 12.2 % (11.6-14.6); RBC Distribution Width SD 41.8 fl (35.1-43.9); Red Blood Count 4.86 M/mm3 (4.2-5.4); White Blood Count 8.5 K/mm3 (4.4-11.0)
[2024-06-10 18:18] LABS: ALB/GLOB Ratio 1.4 RATIO (0.9-2.4); AST(SGOT) 30 U/L (<=31); Alanine Aminotransfer ALT/SGPT 26 U/L (<=34); Albumin, Serum 4.4 g/dL (3.4-4.8); Alkaline Phosphatase 104 U/L (35-104); Anion Gap 11 (5-15); BUN 30 mg/dL (4-19); BUN/Creat Ratio 39.2 RATIO (10-20); Calcium,Total 10.4 mg/dL (7.6-11.0); Carbon Dioxide 26.8 mmol/L (21.0-32.0); Chloride 101 mmol/L (98-108); Creatinine, Serum 0.77 mg/dL (0.70-1.20); EST Glomerular Filtration Rate 77 (>60); Globulin 3.1 g/dL (2.2-4.2); Glucose 107 mg/dL (70-99); Magnesium 2.6 mg/dL (1.5-2.2); Protein, Total 7.5 g/dL (5.9-8.4); Sodium Level 138 mmol/L (133-145); Total Bilirubin 0.32 mg/dL (0.00-1.30)
[2024-06-10 18:23] LABS: Red Blood Cells-Urine 0-5 SEEN /hpf (0-5); White Blood Cells 10-25 SEEN /hpf (0-5)
[2024-06-10 18:24] LABS: Squamous Epithelial Cells - UA 0-5 SEEN /hpf (5-10); Transitional Epithelial - Ur 0-5 SEEN /hpf (0-5)
[2024-06-10 20:04] LABS: Vitamin D,25 Hydroxy 97.8 ng/mL (30-100)
[2024-06-10 20:55] LABS: Cholesterol 237 mg/dL (<=200); High Density Lipoprotein 65 mg/dL; Low Density Lipoprotein Calc. 147 mg/dL; Triglycerides 126 mg/dL; Very Low Density Lipoprotein 25 mg/dL (5-40); cholesterol:hdl ratio screen 3.66
== END | disposition home or self-care (01) ==
LOC: MTLAB 16:27
PROVIDERS: PCP Family Medicine; Referring Provider Family Medicine; Visit Provider Family Medicine
DX: R82.81 Pyuria (principal); E87.6 Hypokalemia; I10 Essential (primary) hypertension
CPT/HCPCS: 80053; 80061; 81001; 82306; 83735; 85025; 87086

== ENCOUNTER → 2024-12-10 | Outpatient (CLI) | payer BC, SELFPAY ==
[2024-12-10 19:33] LABS: AST(SGOT) 30 U/L (<=31); Alanine Aminotransfer ALT/SGPT 33 U/L (<=34); Albumin, Serum 4.4 g/dL (3.4-4.8); Alkaline Phosphatase 111 U/L (35-104); Anion Gap 11 (5-15); BUN 30 mg/dL (4-19); BUN/Creat Ratio 44.7 RATIO (10-20); Calcium,Total 10.1 mg/dL (7.6-11.0); Carbon Dioxide 27.3 mmol/L (21.0-32.0); Chloride 99 mmol/L (98-108); Globulin 3.0 g/dL (2.2-4.2); Glucose 118 mg/dL (70-99); Potassium 4.3 mmol/L (3.3-5.1); Vitamin D,25 Hydroxy 62.2 ng/mL (30-100)
== END | disposition home or self-care (01) ==
LOC: MFPLAB 16:33
PROVIDERS: PCP Family Medicine; Visit Provider Family Medicine
DX: R73.09 Other abnormal glucose (principal); M85.80 Other specified disorders of bone density and structure, unspecified site
CPT/HCPCS: 36415; 80053; 82306; 83036

== ENCOUNTER → 2024-12-24 | Outpatient (CLI) | payer BC, SELFPAY | END | disposition home or self-care (01) | PROVIDERS: PCP Family Medicine; Referring Provider Family Medicine; Visit Provider Family Medicine | DX: M85.80 Other specified disorders of bone density and structure, unspecified site (principal) | CPT/HCPCS: 77080 ==